=== PATIENT | female | born 1970 | race Caucasian/White ===

== ENCOUNTER → 2017-10-06 13:11 | Outpatient (CLI) | payer OTHER, SELFPAY ==
--- NOTE | 2017-10-10 08:10 | DI.NM.S_ITS ---
DATE OF SERVICE: 10/06/2017 PROCEDURE: Exercise perfusion study. INDICATIONS: Chest pain, shortness of breath, and palpitations. RADIOPHARMACEUTICAL: 25.4 mCi of technetium-99m Myoview IV was injected at stress, and 23.0 mCi of technetium-99m Myoview IV was injected at rest. CARDIAC STRESS: The patient underwent exercise perfusion study under the supervision of an attending staff. The patient walked on Nicholas protocol for 9 minutes 06 seconds and achieved 92% of target heart rate. Baseline blood pressure was 120/80. Peak blood pressure 190/90. The patient felt dyspnea. Baseline EKG revealed sinus rhythm with up to 0.5mm to [address] depression in inferior leads and some flattening in leads V5 to V6. During stress, those ST changes got more pronounced. There were no significant sustained arrhythmias. There was return to baseline in recovery. RAW DATA: There was significant breast shadow seen. GATED STUDY: Resting LV ejection fraction 75% and stress LV ejection fraction 82%. I don't see any obvious wall motion abnormalities. No transient ischemic dilatation. TID ratio is 0.63, which is within normal limits. Resting end- diastolic volume 103 mL. Lung/heart ratio is 0.36, which is within normal limits. MYOCARDIAL PERFUSION SCAN: Stress supine and resting supine images revealed small-sized mildly decreased perfusion of anterior wall which resolved during prone images, suggestive of breast tissue attenuation artifact. CONCLUSION: I would call this study a normal myocardial perfusion study with evidence of breast tissue attenuation artifact which resolved during prone images. The patient walked on Nicholas protocol for 9 minutes 0 seconds and achieved functional aerobic impairment of minus-5% and 10.1 METs of workload. LV function is preserved. Overall, this is a low risk myocardial perfusion scan. Humera Barr - BRITTNEY/iliana/higinio doc#: [id number]/job#: [id number] dd: 10/09/2017 12:51:00 dt: 10/09/2017 16:12:00 DICTATING MD/COPIES TO: Page Zhou MD COPIES MNE: DUSTIN
== END ==
PROVIDERS: PCP Physician Assistant Medical; Visit Provider Physician Assistant Medical
DX: R07.9 Chest pain, unspecified (principal); R06.02 Shortness of breath; R00.2 Palpitations
CPT/HCPCS: 78452; 93016; 93017; 93018; A9502

== ENCOUNTER → 2019-05-03 12:17 | Outpatient (CLI) | payer OTHER, SELFPAY ==
--- NOTE | 2019-05-03 | DI.MG.S_ITS ---
BILATERAL DIGITAL DIAGNOSTIC MAMMOGRAM 3D/2D: 05/03/2019 CLINICAL: Left breast mass. Comparison is made to exams dated: 03/26/2015 mammogram and 01/24/2011 mammogram - [facility]. The tissue of both breasts is heterogeneously dense. This may lower the sensitivity of mammography. There is a new 1.1 cm x 1.3 cm irregular equal density focal asymmetry in the left breast at 1 o'clock posterior depth. There also is a 1 cm x 1.1 cm irregular equal density focal asymmetry in the left breast at 1 o'clock anterior depth which appears more prominent and correlates as palpated, to the area of reported pain, with area of clinical concern, and triangle skin marker. No other significant masses, calcifications, or other findings are seen in either breast. IMPRESSION: INCOMPLETE: NEEDS ADDITIONAL IMAGING EVALUATION The new 1.1 cm x 1.3 cm irregular equal density focal asymmetry in the left breast at 1 o'clock posterior depth is indeterminate. An ultrasound is recommended. The 1 cm x 1.1 cm irregular equal density focal asymmetry in the left breast at 1 o'clock anterior depth is indeterminate. An ultrasound is recommended. There is no abnormality seen in the left breast to correspond with the area of clinical concern and palpable abnormality indicated by triangular marker in the axillary tail in the posterior depth in the upper outer quadrant, however, ultrasound is recommended. The recommended breast ultrasound is scheduled to immediately follow this examination. This exam was interpreted at Station ID: [id number]. NOTE: For mammograms, a report in lay terms will be sent to the patient. Approximately 15% of breast malignancies will not be visualized mammographically. In the management of a palpable breast mass, a negative mammogram must not discourage biopsy of a clinically suspicious lesion. Electronically Signed By: Dg Pierce M.D. aty/:05/03/2019 13:40:35 ACR BI-RADS Category 0: Incomplete [id number]
--- NOTE | 2019-05-03 | DI.US.S_ITS ---
ULTRASOUND OF LEFT BREAST AND AXILLA: 05/03/2019 CLINICAL: Palpable left breast lump. Comparison is made to exams dated: 05/03/2019 mammogram - [facility], 03/26/2015 mammogram, and 01/24/2011 mammogram - [facility]. Color flow and real-time ultrasound of the left breast axilla were performed. Ozuna scale images of the real-time examination were reviewed. There is a 1 cm x 1.1 cm x 1.3 cm irregular mass with an indistinct angular margins in the left breast at 1 o'clock posterior depth 8 cm from the nipple. This irregular mass is hypoechoic with no posterior acoustic shadowing or enhancement. This correlates with mammography findings. Color flow imaging demonstrates that there is vascularity present. There also is a benign 1.8 cm x 1.6 cm x 1 cm wider than tall oval cyst in the left breast at 1 o'clock anterior depth 5 cm from the nipple. This oval cyst is anechoic with a well-defined boundary and posterior acoustic enhancement. This correlates as palpated, with mammography findings, and area of clinical concern. Color flow imaging demonstrates that there is no vascularity present. No significant abnormalities were seen sonographically in the left axilla. IMPRESSION: HIGHLY SUGGESTIVE OF MALIGNANCY The 1 cm x 1.1 cm x 1.3 cm irregular mass in the left breast at 1 o'clock posterior depth is highly suggestive of malignancy. An ultrasound guided biopsy is recommended. The 1.8 cm x 1.6 cm x 1 cm wider than tall oval simple cyst in the left breast at 1 o'clock anterior depth is benign. Recommend clinical follow up for persistent symptoms. There is no abnormality seen in the left breast to correspond with the area of clinical concern and palpable abnormality indicated by triangular marker in the axillary tail in the posterior depth in the upper outer quadrant which likely represent normal fibroglandular tissue, however, clinical followup is recommendedfor persistent symptoms. Findings and biopsy recommendations were discussed with the patient by Dr. Martinez during today's visit. This exam was interpreted at Station ID: [id number]. Electronically Signed By: Dg Pierce M.D. aty/:05/03/2019 17:19:49 letter sent: Biopsy Required Ultrasound BI-RADS: 5 Highly suggestive of malignancy
== END ==
PROVIDERS: PCP Physician Assistant Medical; Referring Provider Physician Assistant Medical; Visit Provider Physician Assistant Medical
DX: R92.8 Other abnormal and inconclusive findings on diagnostic imaging of breast (principal); N63.21 Unspecified lump in the left breast, upper outer quadrant; N60.02 Solitary cyst of left breast
CPT/HCPCS: 76642; 77066; G0279

== ENCOUNTER → 2019-05-23 09:03 | Outpatient (CLI) | payer OTHER, SELFPAY ==
--- NOTE | 2019-05-23 | DI.US.S_ITS ---
ULTRASOUND GUIDED BIOPSY LEFT BREAST USING VACUUM DEVICE: 05/23/2019 CLINICAL: Left breast mass. PATIENT CONSENT: Risks (minor bleeding, infection, vasovagal reaction and repeat procedure), benefits and alternatives were explained to the patient and written informed consent was obtained. Correlation is made to exams dated: 05/23/2019 mammogram, 05/03/2019 ultrasound, 05/03/2019 mammogram - [facility], and 03/26/2015 mammogram - [facility]. An ultrasound guided biopsy using real-time ultrasound was performed for the irregular shaped mass located in the left breast at 1 o'clock posterior depth. The skin was prepped in the usual manner. Local anesthetic was administered to the access site. A small incision was made in the breast. The abnormality was approached from the lateral aspect. A biopsy needle was placed adjacent to the abnormality under ultrasound guidance. Once the needle was documented to be in the correct location, seven specimens were obtained using the Mammotome biopsy system. The patient received additional local anesthetic during the procedure. The specimens were sent to the laboratory for pathological analysis. IMPRESSION: ULTRASOUND GUIDED BIOPSY MALIGNANT Ultrasound guided biopsy of the mass in the left breast posterior depth was successful. Pathology demonstrates Invasive ductal carcinoma. Imaging findings are concordant. Recommend surgical/oncological management. This exam was interpreted at Station ID: [id number]. Robert wu,slc/:05/29/2019 17:27:38
--- NOTE | 2019-05-23 | DI.MG.S_ITS ---
PROCEDURE: MM DIAGNOSTIC MAMMO UNILAT LT2D COMPARISON: None. INDICATIONS: LEFT BREAST MASS FINDINGS: IMPRESSION: Dictated by: Robert Jackson M.D. on 05/27/2019 at 15:42 Approved by: Robert Jackson M.D. on 05/27/2019 at 15:43
--- NOTE | 2019-05-23 | PATH_ITS ---
[facility] Accession Number: [id number] . 01 Material submitted: . breast - LEFT BREAST MASS . 01 Diagnosis: A. Left Breast Mass, Biopsy: Invasive (ductal) carcinoma, grade 2 of 3 (Mcwilliams combined histologic grade, total score 7/9), with the following features: 1. Tubular differentation: Litte or none. (3/3) 2. Nuclear pleomorphism: High. (3/3) 3. Mitotic rate: Low. (1/3) 4. Size of invasive carcinoma: Present on multiple cores, single largest dimension of 8 mm. 5. Ductal carcinoma in situ: Not identified. 6. Calcifications: Present, in stroma associated with invasive carcinoma. 7. Lymphatic invasion: Not identified. 8. Prognostic markers: a. Estrogen receptor status: Positive (85% tumor cells staining, staining intensity: weak to moderate). b. Progesterone receptor status: Positive (90% tumor cells staining, staining intensity: moderate to strong). c. HER2 status: Negative for protein overexpression by immunohistochemistry (0-1+). [facility] 05/27/2019 1057 Local . 01 Electronically signed: Tonio Drummond MD, Pathologist NPI- [id number] . 01 Gross description: . Received one formalin-filled container, labeled with the patient's name and labeled left breast. The specimen is received with a plastic filter in container, sample loose in container and consists of multiple yellow-alvarez portions of soft tissue which range in size from 0.1 x 0.1 x 0.1 cm to 1.0 x 0.3 x 0.2 cm. The specimen filtered and entirely submitted in one cassette. Collection date: 05/23/19. Collection time per container: 10:15. Total fixation time: Approximately 12 hours. ([id number]) /NIVIA 05/24/2019 0226 Local . 01 Microscopic: . Predictive marker immunohistochemical studies are performed on block A1 with the invasive carcinoma showing the following results: . Estrogen receptor (SP1): Positive (85%, weak to moderate intensity). Progesterone receptor (1E2): Positive (90%, moderate to strong intensity). Her2 (4B5): Negative for protein overexpression by IHC (0 to 1+). . Internal controls for ER and AR are positive. Cold ischemic time is <5 minutes. The scoring criteria for breast biomarkers by immunohistochemistry is based on the ASCO/CAP guidelines (Emmanuel AC et al, J Clin Oncol: 2018 Sep 26;36(20):9483-8875 and Michelle ME et al, Arch Pathol Lab Med: 2009;134(6):907-22). Deparaffinized sections of formalin fixed tissue (along with appropriate positive controls) are incubated with the above antibody(s). Using the automated [place] stainer, tissue is incubated with the designated antibody which is then localized by a non-biotin, dual polymer detection system. The external controls are reviewed for appropriate reactivity and found to be adequate. Results on the target cell population are indicated above. These tests have not been validated on decalcified tissue. This test was developed and its performance characteristics determined by [employer]. It has not been cleared or approved by the U.S. Food and Drug Administration. The FDA has determined that such clearance or approval is not necessary. This test is used for clinical purposes. It should not be regarded as investigational or for research. . 01 Pathologist provided ICD-10: C50.912 . 01 CPT . 581034, 146177, 548800, 803699 Performed at: 01 [facility] [address] [address] [place] [address] [address], [place], [place] [id number] MD Eleuterio Lopes MD Phone: [phone]
--- NOTE | 2019-05-30 12:53 | ONC.MSW ---
Description: Initial Referral Navigation T/C Reason for Referral: Breast Cancer Activity: Pt called re: getting urgently scheduled for next initial provider appt slot. She was definitively diagnosed with invasive carcinoma of her left breast, with painful and enlarging lymph nodes in her left axilla. She had initially started her work-up at [facility], however has decided to choose [facility] to establish with an oncologist and obtain treatment. [employer] explained the ongoing availability of support, assistance and coordination through navigation, and explained that [facility] had called earlier in the morning re: her referral, and they are faxing over her records and prior-auth sometime this morning. Forwarded to scheduling for next urgent initial visit appt. time.
== END ==
PROVIDERS: PCP Physician Assistant Medical; Referring Provider Physician Assistant Medical; Visit Provider Physician Assistant Medical
DX: C50.412 Malignant neoplasm of upper-outer quadrant of left female breast (principal); Z17.0 Estrogen receptor positive status [ER+]
CPT/HCPCS: 19083; 77065

== ENCOUNTER → 2019-06-04 09:34 | Outpatient (CLI) | payer OTHER, SELFPAY ==
--- NOTE | 2019-06-04 09:35 | DI.US.S_ITS ---
PROCEDURE: US ABDOMEN COMPLETE INDICATIONS: PAIN TECHNIQUE: Real-time scanning was performed of the abdominal and retroperitoneal organs, with image documentation. COMPARISON: None. FINDINGS: Liver: Liver is normal in size and homogeneous in echotexture. Gallbladder: The gallbladder appears normal. Biliary ducts: Intrahepatic bile ducts are non-dilated. Extrahepatic bile duct caliber measures 4.0 mm. eter, or 10 mm or less post-cholecystectomy. Pancreas: Visualized portions of the pancreas are sonographically normal. Spleen: Spleen is normal in size and homogeneous in echotexture. Kidneys: Kidneys are normal in size and echotexture. Right kidney measures 10.8 cm long; left kidney measures 10.2 cm long. No hydronephrosis or nephrolithiasis. No solid masses. Aorta: Visualized aorta is normal in caliber at less than 3 cm. Iliacs: Proximal common iliac arteries are normal in caliber at less than 2.5 cm. IVC: Intrahepatic inferior vena cava is patent. Miscellaneous: No free abdominal fluid. IMPRESSION: Normal abdominal ultrasound, source of current pain is not identified. No evidence of metastatic disease. Dictated by: Terry Carreon M.D. on 06/04/2019 at 13:09 Approved by: Terry Carreon M.D. on 06/04/2019 at 13:10
[2019-06-04 10:42] LABS: Add Manual Diff / Slide Review NO; Basophils Absolute Auto 0 /uL (0-100); Basophils Percent Auto 0.7 % (0-2); Eosinophils Absolute Auto 200 /uL (0-450); Hematocrit 38.5 % (36-46); Lymphocytes Absolute Auto 1900 /uL (1100-4500); Lymphocytes Percent Auto 31.6 % (25-40); Mean Corpuscular HGB Conc 31.2 % (30-36); Mean Corpuscular Hemoglobin 20.8 PG (26-34); Mean Corpuscular Volume 66.5 fL (80-100); Monocytes Absolute Auto 300 /uL (0-900); Monocytes Percent Auto 4.8 % (3-14); Neutrophils Absolute Auto 3600 /uL (1500-7000); Neutrophils Percent Auto 59.9 % (50-75); Platelet Count 242 X10^3/uL (150-400); Red Blood Cell Count 5.79 X10^6/uL (4.0-5.2); Red Cell Distribution Width 15.5 % (11.6-14.8)
[2019-06-04 10:59] LABS: Anisocytosis 2+; Poikilocytosis 1+
[2019-06-04 11:16] LABS: Alanine Aminotransferase 14 IU/L (<35); Albumin 4.8 g/dL (3.5-5.0); Albumin Globulin Ratio 1.5 (1.0-2.8); Alkaline Phosphatase 78 U/L (38-126); Aspartate Aminotransferase 21 IU/L (14-36); BUN Creatinine Ratio 20.6 (6-22); Bilirubin Total 0.7 mg/dL (0.2-1.3); Blood Urea Nitrogen 14 mg/dL (7-17); Calcium 9.9 mg/dL (8.4-10.2); Carbon Dioxide 29 mmol/L (22-32); Chloride 104 mmol/L (98-107); Estimated Glomerular Filt Rate > 60.0 mL/min (>60); Globulin 3.2 g/dL (1.7-4.1); Glucose 103 mg/dL (70-100); HEMOLYSIS < 15 (0-50); Potassium 4.6 mmol/L (3.4-5.1); Sodium 140 mmol/L (137-145)
== END ==
PROVIDERS: PCP Physician Assistant Medical; Referring Provider Internal Medicine Hematology & Oncology; Visit Provider Internal Medicine Hematology & Oncology
DX: C50.412 Malignant neoplasm of upper-outer quadrant of left female breast (principal); R10.9 Unspecified abdominal pain
CPT/HCPCS: 36415; 76700; 80053; 85025

== ENCOUNTER → 2019-06-05 07:34 | Outpatient (CLI) | payer OTHER, SELFPAY ==
--- NOTE | 2019-06-05 | DI.MRI.S_ITS ---
BREAST MRI OF BOTH BREASTS: 06/05/2019 CLINICAL: Invasive ductal carcinoma left breast. INDICATIONS: INVASIVE DUCTAL CARCINOMA, LEFT BREAST TECHNIQUE: The patient was placed prone in a dedicated breast imaging coil. Precontrast axial STIR and 3D FLASH without fat saturation sequences were obtained. Both before and after bolus injection of contrast, sequential 1-minute axial 3D FLASH with fat saturation sequences for 3 time points, with subtraction images and maximum intensity projections (MIP's) generated. Delayed sagittal FLASH images with fat saturation were also obtained. Computer-aided detection, including computer algorithm analysis of MRI image data for lesion detection and characterization, pharmacokinetic analysis, with further physician review for interpretation, was performed. COMPARISON: Comparison is made to exams dated: 05/23/2019 ultrasound biopsy, 05/23/2019 mammogram, 05/03/2019 ultrasound, and 05/03/2019 mammogram - [facility]. FINDINGS: Image quality: Excellent. Right breast: There is moderate background parenchymal enhancement. No suspicious mass or unique non-masslike enhancement. Left breast: Mild background parenchymal enhancement. In the left breast 1:00 position at a posterior depth, there is enhancing mass measuring 1.7 x 1.3 x 1.3 cm. There is central susceptibility artifact consistent with a biopsy marker. Kinetics demonstrate rapid initial enhancement and greater than 50% washout. The lesion is about 1.6 cm away from the chest wall and about 1.5 cm deep to the lateral skin surface. In the 4:00 position of the left breast at mid depth, there is a 6 mm enhancing mass which demonstrates precontrast T1 and T2 hyperintensity, and kinetics show benign pattern of enhancement. A T1 hyperintense tubular, slightly serpiginous and dilated duct is seen centrally in the left breast without enhancement. A 1.0 cm oval cyst is present in the 12:00 left breast middle depth. A subcentimeter T2 hyperintense, nonenhancing structure is present at the 6:00 left breast middle depth. Miscellaneous: Multiple small lymph nodes are seen in the left axilla. Fatty myra are not definitely seen. There is a single mildly prominent right axillary lymph node. A small fatty hilum is seen. No bulky adenopathy in the axilla or internal mammary chains. The visible portions of the osseous structures, chest wall, heart, and upper abdomen appear normal. IMPRESSION: KNOWN BIOPSY PROVEN MALIGNANCY 1. Biopsy proven left breast carcinoma in the 1:00 position measuring 1.7 cm in greatest diameter. 2. A 6 mm lesion in the left breast middle depth 4:00 position demonstrates T2 hyperintensity and benign enhancement pattern. This may be proteinaceous cyst, less likely fibroadenoma. A second look ultrasound could be considered if this would change clinical management. 3. Clearly benign left breast findings as detailed above. 4. Small left axillary lymph nodes, but without definite fatty myra these are somewhat equivocal. 5. Indeterminate single prominent right axillary lymph node, nonspecific. Bilateral axillary ultrasounds at the time of second look ultrasound could be considered. BIRADS 6, biopsy-proven carcinoma. COMMENT: The imaging literature indicates that a negative contrast breast MRI examination has a high sensitivity and a moderate specificity for detecting and excluding invasive carcinomas to a detection threshold of 3-5 mm; nonetheless, appropriate clinical and mammographic follow-up are recommended. MRI is not sensitive for detecting DCIS (ductal carcinoma in situ) and may not detect large invasive neoplasms that show only minimal enhancement such as mucinous carcinoma. If there are suspicious calcifications or clinically worrisome palpable masses, then biopsy should still be considered. Invasive neoplasms can be hidden by co-existent and benign enhancement caused by mastitis, hormone therapy effects, radiation therapy, , and recent biopsy or surgery. False positive examinations can occur in a number of circumstances, including breasts that have recently been subject to invasive procedures and those that contain atypical ductal hyperplasia, hormonally stimulated glandular tissue, fat necrosis, or radial scars. This exam was interpreted at Station ID: [id number]. Electronically Signed By: Felisa hauser/:06/05/2019 15:33:23 copy to: Al Samuel copy to: VAHID FRANCO ACR BI-RADS Category 6: Known biopsy proven malignancy [id number]
== END ==
PROVIDERS: PCP Physician Assistant Medical; Referring Provider Physician Assistant Medical; Visit Provider Physician Assistant Medical
DX: C50.412 Malignant neoplasm of upper-outer quadrant of left female breast (principal); N63.23 Unspecified lump in the left breast, lower outer quadrant; R59.0 Localized enlarged lymph nodes
CPT/HCPCS: 77049; A9579

== ENCOUNTER → 2019-06-10 14:10 | Outpatient (CLI) | payer OTHER, SELFPAY ==
--- NOTE | 2019-06-10 | DI.US.S_ITS ---
ULTRASOUND OF RIGHT BREAST AND AXILLA: 06/10/2019 CLINICAL: Recent left breast ca diagnosis. Return today for right axilla check. Comparison is made to exams dated: 06/05/2019 breast MRI, 05/03/2019 mammogram - [facility], 03/26/2015 mammogram, and 01/24/2011 mammogram - [facility]. Color flow and real-time ultrasound of the right breast axilla were performed. Ozuna scale images of the real-time examination were reviewed. There is a 3.7 cm x 1.7 cm x 1.2 cm oval enlarged lymph node with a circumscribed margin in the deep right axilla. This oval enlarged lymph node is isoechoic with fatty hilum and no posterior acoustic shadowing or enhancement. Uniform cortex measures less than 3 mm. This correlates with breast MRI findings. IMPRESSION: PROBABLY BENIGN Right axillary enlarged lymph node demonstrates a fatty hilum and no cortical thickening and is probably benign. A follow-up ultrasound in 6 months is recommended to demonstrate stability. This exam was interpreted at Station ID: [id number]. Electronically Signed By: Otto Motley M.D. slc/:06/10/2019 17:21:29 copy to: Al Samuel copy to: VAHID FRANCO letter sent: Followup Recommended Ultrasound BI-RADS: 3 Probably benign
--- NOTE | 2019-06-10 | DI.US.S_ITS ---
LIMITED ULTRASOUND OF LEFT BREAST AND AXILLA: 06/10/2019 CLINICAL: [facility] left breast ca diagnosis. Follow-up today of cyst, new tender palp and axilla. Comparison is made to exams dated: 06/05/2019 breast MRI, 05/23/2019 ultrasound biopsy, 05/23/2019 mammogram, 05/03/2019 ultrasound, 05/03/2019 mammogram - [facility], and 03/26/2015 mammogram - [facility]. Color flow and real-time ultrasound of the left breast 12-1 o'clock, and axilla regions were performed. Ozuna scale images of the real-time examination were reviewed. Irregular hypoechoic mass in the left breast at 1 o'clock posterior depth 7-8 cm from the nipple. This correlates with mammography findings and the previous biopsy demonstrating invasive ductal carcinoma. Biopsy clip is seen. There is a 1.3 cm x 0.8 cm x 1 cm (previously 1.8 x 1.6 x 1 cm) oval cyst in the left breast at 1 o'clock anterior depth 5 cm from the nipple. This oval cyst is hypoechoic with a well-defined boundary and posterior acoustic enhancement. This correlates as palpated, with mammography, and breast MRI findings. Color flow imaging demonstrates that there is no vascularity present. This cyst is minimally smaller compared to prior US 05/03/2019 and appears more complex. No sonographic finding in the region of the tender palpable abnormality in the 12:00 region. There also is a stable-appearing 4 cm x 1.9 cm x 1.2 cm (previously measured 3.3 cm in length) oval enlarged lymph node with a circumscribed margin in the left axillary tail. This oval enlarged lymph node is isoechoic with fatty hilum and no posterior acoustic shadowing or enhancement. Uniform cortex measuring less than 3 mm. This correlates with breast MRI findings. IMPRESSION: INCOMPLETE: NEEDS ADDITIONAL IMAGING EVALUATION 1) Biopsy proven invasive ductal carcinoma in the left breast 1:00 7-8 cm from the nipple. -Recommend continued surgical/oncologic management. 2) A 1.3 cm oval cyst in the left breast at 1 o'clock 5 cm from the nipple is slightly decreased in size and appears more complex. This is most consistent with a complicated cyst and is probably benign. It is unclear if this will fall into the planned left breast lumpectomy site. -Recommend follow-up ultrasound in 6 months. 3) No sonographic abnormality at the tender palpable abnormality at 12:00 in the left breast. No abnormality seen in this region on recent MRI. -Recommend continued clinical surveillance. 4) Overall stable 4 cm x 1.2 cm oval enlarged lymph node in the left axilla without cortical thickening. This is probably benign. It is uncertain if this represents the sentinel lymph node which will presumably be resected with lumpectomy. -Recommend follow-up ultrasound in 6 months. 5) Left breast 4:00 middle depth region was not evaluated. This does not correlate with the area of focal pain reported by the patient. Suspicious abnormality seen on recent MRI. -Given the multicentric location the patient will be asked to come back for targeted ultrasound. Exam findings were discussed with the patient shortly after image acquisition. Patient was subsequently called at 6:21 PM to discuss need for evaluation at 4:00 of the left breast. This exam was interpreted at Station ID: [id number]. Electronically Signed By: Otto Motley M.D. [facility] [place]/:06/10/2019 18:22:39 copy to: Al Samuel copy to: VAHID FRANCO letter sent: Additional Imaging Needed Ultrasound BI-RADS: 0 Indeterminate
== END ==
PROVIDERS: PCP Physician Assistant Medical; Referring Provider Physician Assistant Medical; Visit Provider Physician Assistant Medical
DX: C50.412 Malignant neoplasm of upper-outer quadrant of left female breast (principal); R59.0 Localized enlarged lymph nodes; N60.02 Solitary cyst of left breast
CPT/HCPCS: 76642; 76882

== ENCOUNTER → 2019-06-12 14:03 | Outpatient (CLI) | payer OTHER, SELFPAY | PROVIDERS: PCP Physician Assistant Medical; Referring Provider Physician Assistant Medical; Visit Provider Physician Assistant Medical | DX: N63.20 Unspecified lump in the left breast, unspecified quadrant (principal); Z53.9 Procedure and treatment not carried out, unspecified reason ==

== ENCOUNTER → 2019-08-15 10:16 | Outpatient (CLI) | payer OTHER, SELFPAY ==
[2019-08-15 11:04] LABS: Add Manual Diff / Slide Review NO; Basophils Absolute Auto 0 /uL (0-100); Basophils Percent Auto 0.6 % (0-2); Eosinophils Absolute Auto 100 /uL (0-450); Eosinophils Percent Auto 1.6 % (2-4); Hematocrit 36.6 % (36-46); Lymphocytes Absolute Auto 1800 /uL (1100-4500); Lymphocytes Percent Auto 28.7 % (25-40); Mean Corpuscular HGB Conc 32.8 % (30-36); Mean Corpuscular Hemoglobin 21.3 PG (26-34); Monocytes Absolute Auto 300 /uL (0-900); Monocytes Percent Auto 4.5 % (3-14); Neutrophils Absolute Auto 4000 /uL (1500-7000); Neutrophils Percent Auto 64.6 % (50-75); Platelet Count 206 X10^3/uL (150-400); Red Blood Cell Count 5.63 X10^6/uL (4.0-5.2); Red Cell Distribution Width 15.3 % (11.6-14.8); White Blood Cell Count 6.2 X10^3/uL (4.5-11.0)
[2019-08-15 11:16] LABS: Alanine Aminotransferase 24 IU/L (<35); Albumin 4.8 g/dL (3.5-5.0); Albumin Globulin Ratio 1.4 (1.0-2.8); Alkaline Phosphatase 64 U/L (38-126); Aspartate Aminotransferase 25 IU/L (14-36); Blood Urea Nitrogen 15 mg/dL (7-17); Calcium 9.9 mg/dL (8.4-10.2); Carbon Dioxide 25 mmol/L (22-32); Chloride 105 mmol/L (98-107); Estimated Glomerular Filt Rate > 60.0 mL/min (>60); Globulin 3.4 g/dL (1.7-4.1); Glucose 115 mg/dL (70-100); HEMOLYSIS < 15 (0-50); Potassium 4.3 mmol/L (3.4-5.1); Sodium 139 mmol/L (137-145); Total Protein 8.2 g/dL (6.3-8.2)
[2019-08-15 13:37] LABS: Anisocytosis 1+; Microcytosis 1+
== END ==
PROVIDERS: PCP Physician Assistant Medical; Referring Provider Internal Medicine Hematology & Oncology; Visit Provider Internal Medicine Hematology & Oncology
DX: C50.412 Malignant neoplasm of upper-outer quadrant of left female breast (principal)
CPT/HCPCS: 36415; 80053; 85025

== ENCOUNTER → 2019-11-14 08:20 | Oncology outpatient (ONC) | payer OTHER, SELFPAY ==
[2019-06-03 14:09] VITALS: BP 145/87; PULSE 72; RESP 18; TEMP 36.9; O2SAT 98
--- NOTE | 2019-06-03 14:20 | P.CONONC_ITS ---
History of Present Illness - Data of Consult Patient: new to practice Consult date: 06/03/19 Requesting Physician: Corrine Church PA-C Primary Care Provider: Corrine Church PA-C - Consult Narrative Reason for consult: Left breast ER+, GA+, HER2- invasive ductal carcinoma Narrative: Humera Barr is a 49 year old female. Probably around in March of 2019, patient noticed left breast tenderness especially over the upper outer quadrant. Patient said that she actually palpated a lump at that time and the lump was tender. In addition she noticed a little swelling at the tail of the left breast. On 05/03/2019, patient underwent bilateral digital diagnostic mammogram. The mammogram showed new 1.1 cm x 1.3 cm irregular equal density focal asymmetry in the left breast at 0100 posterior depth as well as a 1 cm x 1.1 cm irregular equal density focal asymmetry in the left breast at 0100 anterior depth. Same day ultrasound confirmed the 1 x 1.1 x 1.3 cm irregular mass in the left breast at 0100 posterior depth highly suspicious for malignancy and a 1.8 x 1.6 x 1 cm wider than tall oval simple cyst in the left breast at 0100 anterior depth which presumed to be benign. No significant abnormalities were seen sonographically in the left axilla. On 05/23/2019, patient underwent ultrasound- guided biopsy successfully. The biopsy showed invasive ductal carcinoma, grade 2/3, without DCIS, with calcifications, without lymphovascular invasion, and was ER positive (85%, weak to moderate), GA positive (90% tumor cells, moderate to strong signal), HER2 negative by IHC (0 to 1+). There after patient was referred to Medical Oncology for further evaluation. Patient has not been informed of been referred to any surgical oncology at this moment. Patient is complaining of mild headache on the left side. Patient denies shortness of breath or chest pain. She denies any loss of appetite. Patient denies any non-intentional weight loss. Patient has chronic right salivary gland swelling which is being followed by Dr. Shun Hernadez. She denies any lumps and bumps in the axilla or the groins. No abdominal pain no diarrhea and no constipation. CC: Mitch Woo MD Patient reports pain?: Yes Home Medications and Allergies Home Medications Medication Instructions Recorded Confirmed Type ibuprofen 400 mg PO Q6H 06/03/19 06/03/19 History Allergies Allergy/AdvReac Type Severity Reaction Status Date / Time No Known Drug Allergies Allergy Unverified 02/21/19 13:04 Medical History - Medical, Surgical, Family History Medical History: Medical History (Last Updated 06/03/19 @ 14:41 by Mitch Woo MD) Thalassemia, beta Surgical History: Surgical History (Last Updated 06/03/19 @ 14:42 by Mitch Woo MD) History of oophorectomy, unilateral Hx of appendectomy Hx of hysterectomy Family History: Family History (Last Updated 06/03/19 @ 14:40 by Mitch Woo MD) Father Thalassemia, beta Brother Thalassemia, beta - Social History Smoking Status: Never smoker Substance Use Type: does not use Alcohol Intake: never Review of Systems - Patient Self-Reported Symptoms SR Constitution: Night Sweats SR ears, nose, mouth, throat issues: Congestion, Swollen glands SR respiratory issues: Shortness of breath, Mucous SR Hematologic issues: Swollen lymph nodes All systems PM: reviewed and no additional remarkable complaints except as stated Exam Vital signs: Last Vital Signs Temp 98.5 F 06/03/19 14:09 Pulse 72 06/03/19 14:09 Resp 18 06/03/19 14:09 BP 145/87 H 06/03/19 14:09 Pulse Ox 98 06/03/19 14:09 Narrative: ECOG 1 Gen: WDWN, NAD, pleasant and cooperative. HEENT: NCAT, EOMI, PERRLA, anicteric sclera. Neck: Supple, No palpable thyromegaly or lymphadenopathy. Respiratory: CTAB, no wheezes audible. No JVD Cardiovascular: RRR, S1 and S2 normal, no M/G/R. Abdomen: Soft, no palpable organomegaly. Significant right abdominal tenderness noted. Extremities: No LE pitting edema. Lymphatic: no palpable lymph nodes in the neck, axillae, or groins. Neurological: AOx3, CN II-XII grossly intact. No focal motor or sensory deficit. Psychiatric: Normal affect, appropriate mood, no depression, no anxiety. Breast exams: Left breast is without nipple retraction, needle biopsy location was noted in the tail of the left breast. There is a probably 1 cm irregular nodule palpable at about 0100 and 6 cm from the nipple. There is another spot at about 0900 with tenderness about 4 cm from the nipple. No skin changes. No palpable nodes in the left axilla; The right breast is without nipple retraction, no skin changes, no palpable lumps, no palpable lymph nodes in the left axilla. All physical examinations were chaperoned Results - Labs Pending Assessment and Plan (1) Primary cancer of upper outer quadrant of left breast Overview: 49-year-old female with self palpated breast upper outer quadrant mass with tenderness. She was found to have ER positive GA positive HER2 negative clinically node negative invasive ductal carcinoma intermediate grade after ultrasound-guided biopsy on 05/23/2019. Assessment: Today I explained to the patient that she has an invasive ductal carcinoma of her left breast. Her breast cancer is characterized by being ER positive, GA positive, and HER2 negative, and clinically node negative. Based on the available information, she has an early stage breast cancer likely stage I. Given the early stage and the small size, I would recommend upfront surgery first. After the surgery depending on what type of surgery and the pathology report, I will discuss with them about the need for chemotherapy and the need for radiation therapy. She may need Oncotype DX study to evaluate the benefit of adjuvant chemotherapy. I talked with her that if the score of Oncotype DX is 26 or higher, usually we would recommend chemotherapy. If it is 10 or lower, no chemotherapy is recommended. If intermediate score between 10 and 25, we usually do not recommend chemotherapy except under certain circumstances. I will refer the patient to Dr. Mauro. who saw the patient in the past for hemmarroids for evaluation of the surgery. Patient has already scheduled MRI of the breast which I completely agree with. In addition on today's physical examination, I noticed right abdominal pain. I will order a ultrasound study to further evaluate. Today I also talked with her and her that after the chemotherapy and/or radiation therapy is complete, patient will need 5 years of endocrine therapy. Plan: 1. MR lucero as scheduled 2. US abdomen, complete 3. CBC, CMP 4. Surgical referal 5. RTC in 3 weeks.
--- NOTE | 2019-06-04 13:12 | ONC.SCHED ---
Patient is scheduled for 06/[address] Samuel. Patient will notify of surgery date after which we will re-evaluate fup date with Dr. Woo.
--- NOTE | 2019-06-24 10:19 | ONC.SCHED ---
Left a msg for patient to call back to re schedule per Zoe RAIN she needs to come in.
[2019-06-27 13:03] VITALS: BP 134/75; PULSE 73; RESP 18; TEMP 36.8; O2SAT 99
--- NOTE | 2019-06-27 13:45 | P.PNONC_ITS ---
PN -Subjective Interval history: ID/CC: 49 year old female with newly diagnosed left breast ER positive, MD positive, HER2 negative cancer HPI: Humera Barr is a 49 year old female. Probably around in March of 2019, patient noticed left breast tenderness especially over the upper outer quadrant. Patient said that she actually palpated a lump at that time and the lump was tender. In addition she noticed a little swelling at the tail of the left breast. On 05/03/2019, patient underwent bilateral digital diagnostic mammogram. The mammogram showed new 1.1 cm x 1.3 cm irregular equal density focal asymmetry in the left breast at 0100 posterior depth as well as a 1 cm x 1.1 cm irregular equal density focal asymmetry in the left breast at 0100 anterior depth. Same day ultrasound confirmed the 1 x 1.1 x 1.3 cm irregular mass in the left breast at 0100 posterior depth highly suspicious for malignancy and a 1.8 x 1.6 x 1 cm wider than tall oval simple cyst in the left breast at 0100 anterior depth which presumed to be benign. No significant abnormalities were seen sonographically in the left axilla. On 05/23/2019, patient underwent ultrasound- guided biopsy successfully. The biopsy showed invasive ductal carcinoma, grade 2/3, without DCIS, with calcifications, without lymphovascular invasion, and was ER positive (85%, weak to moderate), MD positive (90% tumor cells, moderate to strong signal), HER2 negative by IHC (0 to 1+). There after patient was referred to Medical Oncology for further evaluation. Patient has not been informed of been referred to any surgical oncology at this moment. Patient is complaining of mild headache on the left side. Patient denies shortness of breath or chest pain. She denies any loss of appetite. Patient denies any non-intentional weight loss. Patient has chronic right salivary gland swelling which is being followed by Dr. Shun Hernadez. She denies any lumps and bumps in the axilla or the groins. No abdominal pain no diarrhea and no constipation. Interval History: Since her previous visit here, patient underwent MRI of the breast as well as multiple ultrasound study of both breasts and axillas. Patient presents here today to review the results. In addition patient was also evaluated by Dr. Samuel. But due to current COVID-19 pandemic, and based on [facility]SO guidelines, Dr. Samuel recommended that we delay the surgical resection for now. - Patient Self-Reported Symptoms SR Constitution: Weight loss/gain SR ears, nose, mouth, throat issues: Congestion, Swollen glands SR respiratory issues: Shortness of breath, Mucous SR Cardiovascular issues: Dizzy/lightheaded SR Musculoskeletal issues: Joint pain or swelling SR Neuro issues: Headache, Lightheaded/dizzy SR Hematologic issues: Swollen lymph nodes - Additional ROS All systems PM: reviewed and no additional remarkable complaints except as stated Home Medications and Allergies Home Medications Medication Instructions Recorded Confirmed Type ibuprofen 400 mg PO Q6H 06/03/19 06/27/19 History acetaminophen [Tylenol] 325 mg PRN 06/27/19 History tamoxifen 20 mg PO DAILY #90 tab 06/27/19 Rx tamoxifen 20 mg PO DAILY #90 tab 06/27/19 Rx Allergies Allergy/AdvReac Type Severity Reaction Status Date / Time No Known Drug Allergies Allergy Unverified 06/06/19 09:37 Exam Vital signs: Vital Signs Temp Pulse Resp BP Pulse Ox 06/27/19 13:03 98.3 F 73 18 134/75 99 Intake and Output 06/26/19 06/27/19 06/27/19 23:59 07:59 15:59 Other: Weight 82.9 kg Patient Weight 06/27/19 23:59 Weight 82.9 kg Narrative: ECOG 1 Gen: WDWN, NAD, pleasant and cooperative. HEENT: NCAT, EOMI, PERRLA, anicteric sclera. Neck: Supple, No palpable thyromegaly or lymphadenopathy. Respiratory: CTAB, no wheezes audible. No JVD Cardiovascular: RRR, S1 and S2 normal, no M/G/R. Abdomen: Soft, no palpable organomegaly. Significant right abdominal tend erness noted. Extremities: No LE pitting edema. Lymphatic: no palpable lymph nodes in the neck, axillae, or groins. Neurological: AOx3, CN II-XII grossly intact. No focal motor or sensory deficit. Psychiatric: Normal affect, appropriate mood, no depression, no anxiety. Breast exams: deferred. Assessment and Plan (1) Primary cancer of upper outer quadrant of left breast Overview: 49-year-old female with self palpated breast upper outer quadrant mass with tenderness. She was found to have ER positive MD positive HER2 negative clinically node negative invasive ductal carcinoma intermediate grade after ultrasound-guided biopsy on 05/23/2019. Assessment: Today, I reviewed the MRI results with the patient. On the MRI, there is 01:00 lesion that was biopsy confirmed breast cancer, a small lesion in the 4 o'clock position as well as a benign cysts. In addition small left axillary lymph nodes noted which were considered equivocal and a single prominent right axillary lymph node noted. I talked with the patient and her that because of this, she underwent another ultrasound study on 06/10/2019. It again showed the proven 01:00 lesion. But it did not show any lesion at the 04:00 position. There is an enlarged lymph node in the left axilla which is probably benign according to the report. The right axillary lymph node is also deemed probably benign. I explained to the patient that because of all of these findings, a follow-up 6 month ultrasound study was deemed necessary. The ultrasound of the abdomen showed no evidence of metastasis. According to patient, Dr. Samuel recommended delay the surgery given the concurrent COVID-19 pandemic based on SSO guidelines. I explained to the patient that for hormone receptor-positive breast cancer, pre-operative endocrine therapy is an option and it can help reduce the size of the tumor as well as possibly reduce the size of the lymph nodes in the axilla. The treatment will make the surgery easier and probably less traumatic. However it will take sometime between 4-6 months to see significant effect. She is now still probably pre menopause. However it is difficult to confirm because she had hysterectomy and one-sided oophorectomy. I talked with her that I would recommend we start tamoxifen. I explained to the patient that tamoxifen has been shown to reduce the risk of recurrence. It is effective in majority of the patients with hormone receptor positive breast cancer. The complications and side effects of tamoxifen include but not limited to hot flashes, night sweats (postmenopausal symptoms), increased risk of venous thromboembolism and increased risk of uterine cancer. Patient obviously has a negligible uterine cancer risk given that she has had hysterectomy. As far as the thromboembolism is concerned, I usually recommend patient take aspirin 81 mg once a day. Patient voiced understanding. Plan: 1. Tamoxifen 20 mg daily 2. ASA 81 mg daily 3. RTC in 2 months, CBC, CMP
--- NOTE | 2019-08-20 13:57 | P.PNONC_ITS ---
PN -Subjective Interval history: ID/CC: 49 year old female with left breast ER positive, MI positive, HER2 negative cancer HPI: Humera Barr is a 49 year old female. I first saw the patient on 06/27/2019. Probably around in 03/2019, patient noticed left breast tenderness especially over the upper outer quadrant. Patient said that she actually palpated a lump at that time and the lump was tender. In addition she noticed a little swelling at the tail of the left breast. On 05/03/2019, patient underwent bilateral digital diagnostic mammogram. The mammogram showed new 1.1 cm x 1.3 cm irregular equal density focal asymmetry in the left breast at 0100 posterior depth as well as a 1 cm x 1.1 cm irregular equal density focal asymmetry in the left breast at 0100 anterior depth. Same day ultrasound confirmed the 1 x 1.1 x 1.3 cm irregular mass in the left breast at 0100 posterior depth highly suspicious for malignancy and a 1.8 x 1.6 x 1 cm wider than tall oval simple cyst in the left breast at 0100 anterior depth which presumed to be benign. No significant abnormalities were seen sonographically in the left axilla. On 05/23/2019, patient underwent ultrasound-guided biopsy successfully. The biopsy showed invasive ductal carcinoma, grade 2/3, without DCIS, with calcifications, without lymphovascular invasion, and was ER positive (85%, weak to moderate), MI positive (90% tumor cells, moderate to strong signal), HER2 negative by IHC (0 to 1+). On 06/05/2019, patient underwent MR breast. It showed the biopsy-proven left br east carcinoma in the 0100 position measuring 1.7 cm in greatest diameter, a 6 mm lesion in the left breast middle depth 0400 position, small left axillary lymph nodes somewhat equivocal, indeterminate single prominent right axillary lymph node. On 06/10/2019 patient underwent ultrasound. The left breast 0400 middle depth lesion on MRI showed no abnormality sonographically. It showed the biopsy-proven invasive ductal carcinoma in the left breast 0100 hours 7-8 cm from the nipple. Right axillary enlarged lymph node showed fatty hilum and no cortical thickening probably benign. Interval History: Patient was referred to our clinic and I saw the patient on 06/27/2019. Because of COVID-19 pandemic, the planned surgery was deferred. Therefore we started the patient on pre operative endocrine therapy with tamoxifen 20 mg once a day. She has tolerated well except mild hot flashes. Recently, patient was evaluated [facility] Who apparently contacted Dr. Starr whom patient was initially referred to but was not able to schedule the visit. Humera talked with Dr. Starr and surgical resection has already been scheduled for 08/26/2019. - Patient Self-Reported Symptoms SR Constitution: Weight loss/gain SR ears, nose, mouth, throat issues: Congestion, Swollen glands SR respiratory issues: Shortness of breath, Mucous SR Cardiovascular issues: Dizzy/lightheaded SR Musculoskeletal issues: Joint pain or swelling SR Neuro issues: Headache, Lightheaded/dizzy SR Hematologic issues: Swollen lymph nodes - Additional ROS All systems PM: reviewed and no additional remarkable complaints except as stated Home Medications and Allergies Home Medications Medication Instructions Recorded Confirmed Type ibuprofen 400 mg PO Q6H 06/03/19 06/27/19 History acetaminophen [Tylenol] 325 mg PRN 06/27/19 History tamoxifen 20 mg PO DAILY #90 tab 06/27/19 Rx tamoxifen 20 mg PO DAILY #90 tab 06/27/19 Rx aspirin DAILY 08/20/19 History Allergies Allergy/AdvReac Type Severity Reaction Status Date / Time No Known Drug Allergies Allergy Unverified 06/06/19 09:37 Exam Vital signs: 08/20/19 18:03 Last Vital Signs Temp 99.0 F 08/20/19 14:03 Pulse 73 08/20/19 14:03 Resp 16 08/20/19 14:03 BP 147/82 H 08/20/19 14:03 Pulse Ox 100 08/20/19 14:03 Narrative: ECOG 1 Gen: WDWN, NAD, pleasant and cooperative. Accompanied by her HEENT: NCAT, EOMI, PERRLA, anicteric sclera. Respiratory: No use of accessory respiratory muscle Neurological: AOx3, CN II-XII grossly intact. No focal motor or sensory deficit. Psychiatric: Normal affect, appropriate mood, no depression, no anxiety. Breast exams: deferred. Results - Labs Pending Assessment and Plan (1) Primary cancer of upper outer quadrant of left breast Overview: 49-year-old female with self palpated breast upper outer quadrant mass with tenderness. She was found to have ER positive MI positive HER2 negative clinically node negative invasive ductal carcinoma intermediate grade after ultrasound-guided biopsy on 05/23/2019. Assessment: Due to COVID-19 crisis, her surgery was deferred without expected date. Therefore we started the patient on pre operative endocrine therapy with tamoxifen 20 mg once a day. Patient tolerated well with only mild hot flashes. Recently she was evaluated by her primary care provider Jayda Church. Patient was then evaluated by Dr. Starr all scheduled the surgical section on 08/26/2019. I explained to the patient that it is reasonable to go ahead with the surgery. After the surgery, I will review the pathology. If the node is positive, I would recommend adjuvant chemotherapy. If the node is negative, I would recommend Oncotype DX score to evaluate the recurrence risk and the benefit of adjuvant chemotherapy. If the score is less than 26, usually I would not recommend chemotherapy. Patient voiced understanding. Plan: 1. Stop Tamoxifen 20 mg daily and ASA 81 mg daily 3. Surgery as planned by Dr. Starr 4. RTC in 3-4 weeks for follow up visit
[2019-08-20 14:03] VITALS: BP 147/82; PULSE 73; RESP 16; TEMP 37.2; O2SAT 100
--- NOTE | 2019-08-20 14:44 | ONC.SCHED ---
Per Dr. Woo I called patient to have her stop Aspirin and Tamoxifin as she is having surgery next week. I left message on her VM.
[2019-09-19 16:17] VITALS: BP 124/72; PULSE 66; RESP 18; TEMP 37.3; O2SAT 98
--- NOTE | 2019-09-19 16:33 | ONC.PN ---
PN -Subjective Interval history: ID/CC: 49 year old female with left breast ER positive, GA positive, HER2 negative cancer HPI: Humera Barr is a 49 year old female. I first saw the patient on 06/27/2019. Probably around in 03/2019, patient noticed left breast tenderness especially over the upper outer quadrant. Patient said that she actually palpated a lump at that time and the lump was tender. In addition she noticed a little swelling at the tail of the left breast. On 05/03/2019, patient underwent bilateral digital diagnostic mammogram. The mammogram showed new 1.1 cm x 1.3 cm irregular equal density focal asymmetry in the left breast at 0100 posterior depth as well as a 1 cm x 1.1 cm irregular equal density focal asymmetry in the left breast at 0100 anterior depth. Same day ultrasound confirmed the 1 x 1.1 x 1.3 cm irregular mass in the left breast at 0100 posterior depth highly suspicious for malignancy and a 1.8 x 1.6 x 1 cm wider than tall oval simple cyst in the left breast at 0100 anterior depth which presumed to be benign. No significant abnormalities were seen sonographically in the left axilla. On 05/23/2019, patient underwent ultrasound-guided biopsy successfully. The biopsy showed invasive ductal carcinoma, grade 2/3, without DCIS, with calcifications, without lymphovascular invasion, and was ER positive (85%, weak to moderate), GA positive (90% tumor cells, moderate to strong signal), HER2 negative by IHC (0 to 1+). On 06/05/2019, patient underwent MR breast. It showed the biopsy-proven left breast carcinoma in the 0100 position measuring 1.7 cm in greatest diameter, a 6 mm lesion in the left breast middle depth 0400 position, small left axillary lymph nodes somewhat equivocal, indeterminate single prominent right axillary lymph node. On 06/10/2019 patient underwent ultrasound. The left breast 0400 middle depth lesion on MRI showed no abnormality sonographically. It showed the biopsy-proven invasive ductal carcinoma in the left breast 0100 hours 7-8 cm from the nipple. Right axillary enlarged lymph node showed fatty hilum and no cortical thickening probably benign. Patient was referred to our clinic and I saw the patient on 06/27/2019. Because of COVID-19 pandemic, the planned surgery was deferred. Therefore we started the patient on pre operative endocrine therapy with tamoxifen 20 mg once a day. She has tolerated well except mild hot flashes. In late , Humera was evaluated by her primary care provider MELANY Church at [facility], who contacted Dr. Starr whom patient was initially referred to but was not able to schedule the visit. Humera then talked with Dr. Starr and decided to proceed with surgery. Therefore, on 08/20/2019, she stopped the neoadjuvant tamoxifen. Interval History: On 08/26/2019 patient left breast lumpectomy sentinel node biopsy after needle localization mapping by Dr. Starr. The surgical pathology showed invasive infiltrating ductal carcinoma, low-grade, low mitotic rate, measuring 15 x 13 x 12 mm in size, without DCIS, unifocal, no lymphovascular invasion, all margins negative, and a single axillary sentinel node negative for metastasis. AJCC (eighth edition) pT1c pN0. She presents here today accompanied by her for postoperative follow-up visit. Patient is reporting some tenderness and swelling of the left breast. Otherwise she reports good energy good appetite. She does not have any shortness of breath or chest pain. No abdominal pain no diarrhea and no constipation. She apparently has been informed of the pathology report, and also has been informed about the necessity of adjuvant radiation therapy. Dr. Starr has already placed an referral to [facility]. - Patient Self-Reported Symptoms SR Constitution: Night Sweats SR ears, nose, mouth, throat issues: Cough SR respiratory issues: Cough SR Cardiovascular issues: Dizzy/lightheaded SR Genitourinary issues: Frequent urination, Discharge SR Musculoskeletal issues: Joint pain or swelling SR Neuro issues: Headache, Lightheaded/dizzy SR Hematologic issues: Swollen lymph nodes - Additional ROS All systems PM: reviewed and no additional remarkable complaints except as stated Home Medications and Allergies Home Medications Medication Instructions Recorded Confirmed Type ibuprofen 400 mg PO Q6H 06/03/19 06/27/19 History acetaminophen [Tylenol] 325 mg PRN 06/27/19 History tamoxifen 20 mg PO DAILY #90 tab 06/27/19 Rx tamoxifen 20 mg PO DAILY #90 tab 06/27/19 Rx aspirin DAILY 08/20/19 History Allergies Allergy/AdvReac Type Severity Reaction Status Date / Time No Known Drug Allergies Allergy Unverified 06/06/19 09:37 Exam Vital signs: Last Vital Signs Temp 99.1 F 07/02/20 16:17 Pulse 66 09/19/19 16:17 Resp 18 09/19/19 16:17 BP 124/72 09/19/19 16:17 Pulse Ox 98 09/19/19 16:17 Narrative: ECOG 1 Gen: WDWN, NAD, pleasant and cooperative. Accompanied by her HEENT: NCAT, EOMI, PERRLA, anicteric sclera. Respiratory: No use of accessory respiratory muscle Neurological: AOx3, CN II-XII grossly intact. No focal motor or sensory deficit. Psychiatric: Normal affect, appropriate mood, no depression, no anxiety. Breast exams: deferred. Results - Labs None for review today. Assessment and Plan (1) Primary cancer of upper outer quadrant of left breast Overview: Humera is a 49-year-old female with self palpated breast upper outer quadrant tender mass, and was found out to have ER positive, GA positive, HER2 negative, clinically node negative invasive ductal carcinoma intermediate grade after ultrasound-guided biopsy on 05/23/2019. Due to COVID-19 crisis, her surgery was deferred. From 06/27/2019 to 08/20/2019, she received a brief course of neoadjuvant endocrine therapy with tamoxifen. On 08/26/2019, she underwent left breast lumpectomy with sentinel node biopsy after needle localization mapping by Dr. Starr. The surgical pathology infiltrating ductal carcinoma, low-grade, low mitotic rate, unifocal, 15 x 13 x 12 mm in size, without DCIS, without LVI, with all margins negative, and one negative axillary sentinel node (0/1). AJCC (eighth edition) pT1c pN0. Assessment: Today, first of all I tried to explain to patient about the pathology findings. Dr. Starr has already explained to the patient about the final pathology diagnosis. I emphasized to the patient and her that she has an early stage left breast cancer characterized by positive estrogen receptor, positive progesterone receptor, negative HER2 amplification and negative sentinel lymph node. Given that she has only had lumpectomy and the size of the primary tumor (pT1c), I agree that adjuvant radiation therapy is highly recommended. However the question is about the chemotherapy. Patient surgical sample showed no high risk features, most likely she probably does not need adjuvant chemotherapy. But based on the guidelines, I would recommend sent off the surgical sample for evaluation of Oncotype DX score. I explained to the patient that if the score is 26 or higher, chemotherapy is highly recommended. However if the score is less than 26, I will further discuss about the chemotherapy. Most of the time, adjuvant chemotherapy is not required. Especially if the recurrence score is low. I talked with the patient that it will take about 1-2 weeks to receive the results. I also talked with the patient that if chemotherapy is indeed indicated, patient will need to have a port placed. Lastly, after the chemotherapy if it is indicated, patient then will go on and receive the radiation therapy. After the radiation therapy she will need 5 years of endocrine therapy to reduce the risk of distant recurrence. Patient and patient's both voiced understanding. Humera said that she is going to call Dr. Garvin office to see if the sample has already been sent off for Oncotype DX score. If it has not been sent off, we will request the Oncotype DX score study. Plan: 1. Surgery sample for OncoType Dx study (if it has not been done). 2. RTC in 2 weeks for follow up visit
--- NOTE | 2019-09-23 11:40 | ONC.SCHED ---
Called patient to get her scheduled for f/u. Asks if she had her from Dr. Starr regarding Onco Type and she called and left a message this morning. Dr. Starr is not in. Patient will call me back when she hears from Dr. Starr's office regarding the Onco Type test. Patient is confused as to why this test needs to be done after her conversations with Dr. Starr. I will speak with Dr. Woo.
--- NOTE | 2019-09-23 14:20 | ONC.SCHED ---
OncoType DX requisition faxed to [employer]
--- NOTE | 2019-09-27 15:40 | ONC.SCHED ---
OncoType DX: faxed [employer] insurance authorization to [facility] billing team @ [phone] reference #[id number]. ETA of report 10/09/19 or before.
--- NOTE | 2019-10-07 13:15 | P.PNONC_ITS ---
PN -Subjective Interval history: ID/CC: 49 year old female with left breast ER positive, NE positive, HER2 negative cancer HPI: Humera Barr is a 49 year old female. I first saw the patient on 06/27/2019. Probably around in 03/2019, patient noticed left breast tenderness especially over the upper outer quadrant. Patient said that she actually palpated a lump at that time and the lump was tender. In addition she noticed a little swelling at the tail of the left breast. On 05/03/2019, patient underwent bilateral digital diagnostic mammogram. The mammogram showed new 1.1 cm x 1.3 cm irregular equal density focal asymmetry in the left breast at 0100 posterior depth as well as a 1 cm x 1.1 cm irregular equal density focal asymmetry in the left breast at 0100 anterior depth. Same day ultrasound confirmed the 1 x 1.1 x 1.3 cm irregular mass in the left breast at 0100 posterior depth highly suspicious for malignancy and a 1.8 x 1.6 x 1 cm wider than tall oval simple cyst in the left breast at 0100 anterior depth which presumed to be benign. No significant abnormalities were seen sonographically in the left axilla. On 05/23/2019, patient underwent ultrasound-guided biopsy successfully. The biopsy showed invasive ductal carcinoma, grade 2/3, without DCIS, with calcifications, without lymphovascular invasion, and was ER positive (85%, weak to moderate), NE positive (90% tumor cells, moderate to strong signal), HER2 negative by IHC (0 to 1+). On 06/05/2019, patient underwent MR breast. It showed the biopsy-proven left br east carcinoma in the 0100 position measuring 1.7 cm in greatest diameter, a 6 mm lesion in the left breast middle depth 0400 position, small left axillary lymph nodes somewhat equivocal, indeterminate single prominent right axillary lymph node. On 06/10/2019 patient underwent ultrasound. The left breast 0400 middle depth lesion on MRI showed no abnormality sonographically. It showed the biopsy-proven invasive ductal carcinoma in the left breast 0100 hours 7-8 cm from the nipple. Right axillary enlarged lymph node showed fatty hilum and no cortical thickening probably benign. Patient was referred to our clinic and I saw the patient on 06/27/2019. Because of COVID-19 pandemic, the planned surgery was deferred. Therefore we started the patient on pre operative endocrine therapy with tamoxifen 20 mg once a day. She has tolerated well except mild hot flashes. In late , Humera was evaluated by her primary care provider MELANY Church at [facility], who contacted Dr. Starr whom patient was initially referred to but was not able to schedule the visit. Humera then talked with Dr. Starr and decided to proceed with surgery. Therefore, on 08/20/2019, she stopped the neoadjuvant tamoxifen. On 08/26/2019 patient left breast lumpectomy and sentinel node biopsy after needle localization mapping by Dr. Starr. The surgical pathology showed invasive infiltrating ductal carcinoma, low-grade, low mitotic rate, measuring 15 x 13 x 12 mm in size, without DCIS, unifocal, no lymphovascular invasion, all margins negative, and a single axillary sentinel node negative for metastasis. AJCC (eighth edition) pT1c pN0. Interval History: She presents here today accompanied by her to review the OncoType Dx score results. The score was 28. Her 9-year recurrence on tamoxifen alone is estimated at 17%. Group average absolute chemotherapy benefit for recurrence score between 26-100 was more than 15%. Clinically patient does not new events except the left breast swelling and tender with mild erythema. She denies any fever or chills. She does not have any shortness of breath or chest pain. No abdominal pain no diarrhea and no constipation. - Patient Self-Reported Symptoms SR Constitution: Night Sweats SR ears, nose, mouth, throat issues: Cough SR respiratory issues: Cough SR Cardiovascular issues: Dizzy/lightheaded SR Genitourinary issues: Frequent urination, Discharge SR Musculoskeletal issues: Joint pain or swelling SR Neuro issues: Headache, Lightheaded/dizzy SR Hematologic issues: Swollen lymph nodes - Additional ROS All systems PM: reviewed and no additional remarkable complaints except as stated Home Medications and Allergies Home Medications Medication Instructions Recorded Confirmed Type ibuprofen 400 mg PO Q6H 06/03/19 06/27/19 History acetaminophen [Tylenol] 325 mg PRN 06/27/19 History tamoxifen 20 mg PO DAILY #90 tab 06/27/19 Rx tamoxifen 20 mg PO DAILY #90 tab 06/27/19 Rx aspirin DAILY 08/20/19 History Allergies Allergy/AdvReac Type Severity Reaction Status Date / Time No Known Drug Allergies Allergy Unverified 03/19/20 09:37 Exam Vital signs: 10/07/19 13:55 Last Vital Signs Temp 99.1 F 09/19/19 16:17 Pulse 87 10/07/19 13:16 Resp 18 10/07/19 13:16 BP 121/79 10/07/19 13:16 Pulse Ox 100 10/07/19 13:16 - Constitutional positive no acute distress, positive obese, positive cooperative - Routine HEENT Exam Head: Present: normocephalic, atraumatic Eye: Present: EOMI, PERRL, normal accommodation. Absent: conjunctival icterus - Routine Neck Exam Present: supple. Absent: lymphadenopathy, thyromegaly - Detailed Breast Exam left Inspection: Present: erythema (mild), swelling, peau d'orange Palpation: Present: tenderness (mild). Absent: mass Comments: Left breast is tight and rubbery. right Inspection: Absent: erythema, swelling, peau d'orange, area of retraction Palpation: Absent: mass, tenderness - Routine Respiratory Exam Present: Clear to auscultation bilaterally. Absent: accessory muscle use, rales, wheezes - Routine Cardiovascular Exam Present: RRR, S1, S2. Absent: murmur, gallop, rubs - Routine Abdominal Exam Present: soft. Absent: tenderness, distended, organomegaly - Routine Extremities Exam Absent: edema - Routine Neurological Exam Present: alert, oriented X3, CN II-XII intact. Absent: sensory deficit, motor deficit - Routine Psychiatric Exam Present: normal affect Results - Labs Pending Assessment and Plan (1) Primary cancer of upper outer quadrant of left breast Overview: Humera is a 49-year-old female with self palpated breast upper outer quadrant tender mass, and was found out to have ER positive, NE positive, HER2 negative, clinically node negative invasive ductal carcinoma intermediate grade after ultrasound-guided biopsy on 05/23/2019. Due to COVID-19 crisis, her surgery was deferred. From 06/27/2019 to 08/20/2019, she received a brief course of neoadjuvant endocrine therapy with tamoxifen. On 08/26/2019, she underwent left breast lumpectomy with sentinel node biopsy after needle localization mapping by Dr. Starr. The surgical pathology infiltrating ductal carcinoma, low-grade, low mitotic rate, unifocal, 15 x 13 x 12 mm in size, without DCIS, without LVI, with all margins negative, and one negative axillary sentinel node (0/1). AJCC (eighth edition) pT1c pN0. Assessment: First I reviewed the Oncotype DX score with the patient. Patient has a recurrence score of 28. Patient has a distant recurrence risk of 17% if the patient was treated only on tamoxifen. Chemotherapy can have an absolute benefit of about 6-8%, i.e. her recurrence will be reduced to about 10%. Further adjuvant radiation therapy can further reduce both local and distant recurrence. Based on NCCN guideline, I would highly recommend chemotherapy. Patient voiced understanding. I explained to the patient that chemotherapy usually needs to administered via a port. I will refer the patient back to Dr. Starr for port placement. As far as the chemotherapy is concerned, I explained to the patient that there are generally 2 regimens which are commonly used. The first one is Adriamycin Cytoxan with weekly paclitaxel. The second regimen is docetaxel and Cytoxan. Patient reported that during last year, patient has had multiple episodes of rapid heartbeat. Patient underwent Holter monitoring as well as echocardiogram without any definitive diagnosis. Given these questionable heart problems, I would favor the regimen with docetaxel and Cytoxan because the Adriamycin has significant cardiac toxicity. Patient voiced understanding. I talked with the patient that the chemotherapy can cause side effects including but not limited to hair loss, nausea, vomiting, bone marrow suppression, infection risk, the need for antibiotics and blood transfusion. Patient voiced understanding and agreement to move forward. As far as the swelling and tenderness of the left breast is concerned, it is most likely lymphedema. I encouraged the patient to talk with Dr. Starr about any other options. I talked with her that sometimes breast massage can be of benefit. Patient voiced understanding. Plan: 1. Refer back to Dr. Starr for port placement 2. Chemotherapy teaching with the nurses 3. RTC in 2 weeks for C1# TC
[2019-10-07 13:16] VITALS: BP 121/79; PULSE 87; RESP 18; O2SAT 100
--- NOTE | 2019-10-08 13:30 | ONC.SCHED ---
Cyclophosphamide J9070 and Docetaxel J9171 no PA required per [employer] Authorization tool [facility].
--- NOTE | 2019-10-08 13:37 | ONC.SCHED ---
Submitted PA for Pegfilgrastim using [facility] Port PA tool for [employer].
--- NOTE | 2019-10-08 13:57 | ONC.SCHED ---
Per Sanjuanita at [facility], patient is scheduled for port placement on 10/14/[address] Starr.
--- NOTE | 2019-10-09 16:03 | PC.NURSE ---
CHEMO TEACHING: Chemotherapy Education: Pt provided written information on all topics discussed. Written materials printed from www.[facility].com for patient's ordered treatment plan. Pt was given an overview of cancer and mechanism of action of cancer cells, that cancer is caused by cells that are dividing rapidly, and out of control. Traditional chemotherapy works by targeting the fast dividing cells and killing them. Chemotherapy affecting healthy cells dividing quickly causes many of the side effects (hair follicles, bone marrow, mucus membranes). Overview of blood cell functions of white cells to fight infection, red cells to carry oxygen, and platelets to stop bleeding was discussed, and that when bone marrow is affected by chemo, there is a decrease in production of these cells. Home care of the patient following chemotherapy was discussed. Body fluids will be contaminated for 48 hours following treatment, and any body fluids handled by caregivers should be handled wearing gloves, surfaces need to be cleaned with soap and water, any soiled linens or clothing need to be washed separately in hot water, toilet lid should be closed when flushing, person cleaning the toilet should wear gloves. How chemotherapy is administered by the RN?s in the clinic, that orders are double checked by pharmacy and checked again by two RN?s prior to administration. Nurses wear protective gear to prevent exposure to them of the chemotherapy agents which can also cause cancer. Cancer center information discussed and written hand out provided listing on-call oncologist available weekends and after hours triage R.N. hours and infusion room guide. New patient folder given to pt, which includes clinic names, phone numbers, clinic information, calendar, cancer glossary, and list of resources. Handout on advanced directives Common side effects of chemotherapy were discussed with self care tips for prevention of complications. Information also provided in writing. These included: Low blood counts (anemia, thrombocytopenia, neutropenia) Hair loss (alopecia) Nausea and vomiting Decreased appetite Loss of fertility Diarrhea Mouth sores Constipation Peripheral neuropathy Chemo brain/cognitive changes Fatigue Instructions on when to call your healthcare team or on-call physician immediately: Fever of 100.4 or higher, chills, any signs of infection Shortness of breath, wheezing, difficulty breathing, closing of throat, swelling of face, hives (signs of possible allergic reaction) Chest pain, fast heart beat or feelings of a different heart rhythm Swelling of an extremity with or without pain signs of stroke Instructions on when to call your healthcare team within the next 24 hours Nausea that interferes with ability to eat and unrelieved with prescribed medication Diarrhea (4-6 episodes in 24 hour period). Unusual bleeding or bruising Black or tarry stools, or blood in your stools Blood in the urine pain or burning with urination Extreme fatigue (unable to perform self-care activities) Mouth sores or sore areas in your mouth Bad headache Dizziness or lightheadedness Large weight gain over a short period of time General self-care tips while undergoing treatment discussed were as follows. Written materials were provided covering in detail and additional self care tips. Drink at least 2-3 quarts (8-10 glasses) of no-caffeinated beverages daily unless you are instructed otherwise and empty your bladder frequently Report any concerning symptoms to your healthcare team Avoid crowds and sick people, wash your hands frequently Use a soft bristled toothbrush, rinse three times a day with 1 tsp baking soda or 1 tsp salt mixed with warm water Avoid any mouthwashes or oral and skin products containing alcohol or fragrances Use electric razors to avoid cutting yourself Avoid contact sports or activities that could cause head injury or bleeding Avoid sun exposure, wear SPF 15 or higher, wear protective clothing Get plenty of rest, meter your activities Maintain good nutrition Avoid alcoholic beverages Attend your scheduled appointments and lab draws Treatment regimen reviewed and medications were discussed with attention to specific side effects and self care for the pt?s treatment regimen. Pt encouraged to keep a list of questions that may arise after this teaching session and bring back to next clinic visit to address. All pt's questions answered at this time. Pt verbalizes understanding of treatment plan. Patient wishes to sign consent form with Dr. Woo as she would like to speak over the information with her and verify some information she heard of about the possibility of permanent hair loss with docetaxel. 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
--- NOTE | 2019-10-09 16:08 | PC.NURSE ---
PATIENT WOULD LIKE TO KNOW IF SHE NEEDS DEXAMETHASONE PO FOR POSSIBLE FLUID RETENTION WITH DOCETAXEL AND WOULD LIKE A PRESCRIPTION OF ONDANSETRON ODT FOR POSSIBLE NAUSEAU POST CHEMO. PRESCRIPTIONS CAN BE ESCRIBED TO [facility]. TRIAGE TO INFORM PATIENT TO BEATER LEAD PRESCRIPTIONS.
--- NOTE | 2019-10-10 16:36 | PC.NURSE ---
Addendum entered by Lenard Zuluaga R.N. 10/17/19 09:04: SEDRICK Beckford talked with the patient about alternate therapies: Methotrexate and fluorouracil, pt is comfortable with both of these medications in place of the taxotere. 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 Making provider aware with this note. Please advise. Original Note: Pt does not want to take Taxotere, related to potential permanent hair loss. She would like to know what her other options are. Making provider aware with this note.
--- NOTE | 2019-10-15 11:35 | ONC.SCHED ---
Received denial of coverage for pegfilgrastim. Put in Mattie's box.
[2019-10-21 09:25] VITALS: BP 141/86; PULSE 93; RESP 20; TEMP 36.8; O2SAT 96
--- NOTE | 2019-10-21 10:07 | P.PNONC_ITS ---
PN -Subjective Interval history: ID/CC: 49 year old female with left breast ER positive, WY positive, HER2 negative cancer HPI: Humera Barr is a 49 year old female. I first saw the patient on 06/27/2019. Probably around in 03/2019, patient noticed left breast tenderness especially over the upper outer quadrant. Patient said that she actually palpated a lump at that time and the lump was tender. In addition she noticed a little swelling at the tail of the left breast. On 05/03/2019, patient underwent bilateral digital diagnostic mammogram. The mammogram showed new 1.1 cm x 1.3 cm irregular equal density focal asymmetry in the left breast at 0100 posterior depth as well as a 1 cm x 1.1 cm irregular equal density focal asymmetry in the left breast at 0100 anterior depth. Same day ultrasound confirmed the 1 x 1.1 x 1.3 cm irregular mass in the left breast at 0100 posterior depth highly suspicious for malignancy and a 1.8 x 1.6 x 1 cm wider than tall oval simple cyst in the left breast at 0100 anterior depth which presumed to be benign. No significant abnormalities were seen sonographically in the left axilla. On 05/23/2019, patient underwent ultrasound-guided biopsy successfully. The biopsy showed invasive ductal carcinoma, grade 2/3, without DCIS, with calcifications, without lymphovascular invasion, and was ER positive (85%, weak to moderate), WY positive (90% tumor cells, moderate to strong signal), HER2 negative by IHC (0 to 1+). On 06/05/2019, patient underwent MR breast. It showed the biopsy-proven left br east carcinoma in the 0100 position measuring 1.7 cm in greatest diameter, a 6 mm lesion in the left breast middle depth 0400 position, small left axillary lymph nodes somewhat equivocal, indeterminate single prominent right axillary lymph node. On 06/10/2019 patient underwent ultrasound. The left breast 0400 middle depth lesion on MRI showed no abnormality sonographically. It showed the biopsy-proven invasive ductal carcinoma in the left breast 0100 hours 7-8 cm from the nipple. Right axillary enlarged lymph node showed fatty hilum and no cortical thickening probably benign. Patient was referred to our clinic and I saw the patient on 06/27/2019. Because of COVID-19 pandemic, the planned surgery was deferred. Therefore we started the patient on pre operative endocrine therapy with tamoxifen 20 mg once a day. She has tolerated well except mild hot flashes. In late , Humera was evaluated by her primary care provider MELANY Church at [facility], who contacted Dr. Starr whom patient was initially referred to but was not able to schedule the visit. Humera then talked with Dr. Starr and decided to proceed with surgery. Therefore, on 08/20/2019, she stopped the neoadjuvant tamoxifen. On 08/26/2019 patient left breast lumpectomy and sentinel node biopsy after needle localization mapping by Dr. Starr. The surgical pathology showed invasive infiltrating ductal carcinoma, low-grade, low mitotic rate, measuring 15 x 13 x 12 mm in size, without DCIS, unifocal, no lymphovascular invasion, all margins negative, and a single axillary sentinel node negative for metastasis. AJCC (eighth edition) pT1c pN0. OncoType Dx score was 28. Her 9-year recurrence on tamoxifen alone is estimated at 17%. Group average absolute chemotherapy benefit for recurrence score between 26-100 was more than 15%. Interval History: During her previous visit, we discussed in details about the need for adjuvant chemotherapy given the high Oncotype DX score. Patient voiced understanding. Also because of her uncertain history of cardiac issues, I talked with her that I am going to avoid the use of Adriamycin. We eventually decided to proceed with chemotherapy including docetaxel and Cytoxan every 3 weeks for 4 cycles. However patient has been very uncomfortable with the use of the docetaxel. She has been looking up online and has noticed ?thousands of lawsuits against the docetaxel for permanent hair loss.? She is very much afraid of the prominent hair loss. Otherwise clinically she has been doing well without any new signs or symptoms. She is scheduled for initiation of first cycle of adjuvant chemotherapy with docetaxel and Cytoxan today. Patient has already had port placement to the right upper chest. - Patient Self-Reported Symptoms SR Constitution: Fatigue/Malaise SR ears, nose, mouth, throat issues: Cough, Swollen glands SR respiratory issues: Cough SR Cardiovascular issues: Dizzy/lightheaded SR Genitourinary issues: Frequent urination, Discharge SR Musculoskeletal issues: Joint pain or swelling SR Neuro issues: Headache SR Hematologic issues: Swollen lymph nodes - Additional ROS All systems PM: reviewed and no additional remarkable complaints except as stated Home Medications and Allergies Home Medications Medication Instructions Recorded Confirmed Type ibuprofen 400 mg PO Q6H 06/03/19 10/21/19 History acetaminophen [Tylenol] 325 mg PRN PRN 06/27/19 10/21/19 History tamoxifen 20 mg PO DAILY #90 tab 06/27/19 10/21/19 Rx tamoxifen 20 mg PO DAILY #90 tab 06/27/19 10/21/19 Rx aspirin 1 tab DAILY 08/20/19 10/21/19 History Allergies Allergy/AdvReac Type Severity Reaction Status Date / Time No Known Drug Allergies Allergy Unverified 06/06/19 09:37 Exam Vital signs: Vital Signs Temp Pulse Resp BP Pulse Ox 10/21/19 09:25 98.2 F 93 H 20 141/86 H 96 Intake and Output 10/20/19 10/21/19 10/21/19 23:59 07:59 15:59 Other: Weight 84 kg Patient Weight 10/21/19 23:59 Weight 84 kg Narrative: ECOG 1 Gen: WDWN, NAD, pleasant and cooperative. Accompanied by her HEENT: NCAT, EOMI, PERRLA, anicteric sclera. Respiratory: No use of accessory respiratory muscle Neurological: AOx3, CN II-XII grossly intact. No focal motor or sensory deficit. Psychiatric: Normal affect, appropriate mood, no depression, no anxiety. Breast exams: deferred. Results - Labs Pending Assessment and Plan (1) Primary cancer of upper outer quadrant of left breast Overview: Humera is a 49-year-old female with self palpated breast upper outer quadrant tender mass, and was found out to have ER positive, WY positive, HER2 negative, clinically node negative invasive ductal carcinoma intermediate grade after ultrasound-guided biopsy on 05/23/2019. Due to COVID-19 crisis, her surgery was deferred. From 06/27/2019 to 08/20/2019, she received a brief course of neoadjuvant endocrine therapy with tamoxifen. On 08/26/2019, she underwent left breast lumpectomy with sentinel node biopsy after needle localization mapping by Dr. Starr. The surgical pathology infiltrating ductal carcinoma, low-grade, low mitotic rate, unifocal, 15 x 13 x 12 mm in size, without DCIS, without LVI, with all margins negative, and one negative axillary sentinel node (0/1). AJCC (eighth edition) pT1c pN0. OncoType Dx score was 28. Her 9-year recurrence on tamoxifen alone is estimated at 17%. Group average absolute chemotherapy benefit for recurrence score between 26-100 was more than 15%. Assessment: Humera has enormous anxiety regarding possibility of permanent hair loss associated with the use of docetaxel. She has looked up online and has noticed thousands of law suits about the permanent hair loss with Taxotere. I talked with her that from personal experience, I have not encountered a single case of permanent hair loss after the chemotherapy with docetaxel and Cytoxan. In addition, other regimens for example, AC/D (Adriamycin Cytoxan followed by paclitaxel) or CMV (Cytoxan Methotrexate and 5 FU), in my opinion is not less likely to cause permanent hair loss. I think all the chemotherapy regimens probably carries a very small risk of permanent hair loss. However I think the risk of recurrence of her breast cancer far outweighs the tiny risk of permanent hair loss. I would highly recommend that the patient consider proceeding with adjuvant chemotherapy. Patient is undecided. I talked with her that it would be probably helpful if she can get a second opinion from high-volume center regarding the different chemotherapy regimens and recommendations. She voiced agreement and would like to get a opinion at [facility]. It can be either a telephone or a video visit, not necessarily in-person visit. Plan: 1. Hold TC (Taxotere/Cytoxan) chemotherapy for now 2. Second opinion from [facility] (could be telemedicine) 3. RTC after /[facility] consult (2) Port-A-Cath in place Flush every 4-6 weeks
--- NOTE | 2019-11-06 13:32 | PC.NURSE ---
TAXOTERE: PATIENT STILL DOES NOT WANT TO DO CHEMO WITH TAXOTERE DUE TO HAIR LOSS ISSUE. SHE SPOKE WITH A DR AT [facility] REPORTING THAT HE RECOMMENDED THE TWO POSSIBILITIES OF A/C AND PACLITAXEL OR CYTOXAN/TAXOTERE. SHE WOULD LIKE TO KNOW IF JUST CTOXAN AND PACLITAXEL IS AN OPTION SHE FEELS OK ABOUT DOING THIS AND KNOWS DR FRANCO DOES NOT WANT HER TO DO ADRIAMYCIN DUE TO HER HISTORY OF ISSUES WITH THE HEART. DR FRANCO INFORMED PER THIS NOTE AND OF PATIENT'S WISH FOR A CALL BACK FROM HIM IF POSSIBLE AT [phone] SO THAT A DECISION CAN BE MADE BEFORE HER SCHEDULED START OF 11/10.
[2019-11-14 08:25] VITALS: BP 143/77; PULSE 92; RESP 18; TEMP 36.7; O2SAT 100
--- NOTE | 2019-11-14 08:27 | ONC.PN ---
PN -Subjective Interval history: ID/CC: 49 year old female with left breast ER positive, NV positive, HER2 negative cancer HPI: Humera Barr is a 49 year old female. I first saw the patient on 06/27/2019. Probably around in 03/2019, patient noticed left breast tenderness especially over the upper outer quadrant. Patient said that she actually palpated a lump at that time and the lump was tender. In addition she noticed a little swelling at the tail of the left breast. On 05/03/2019, patient underwent bilateral digital diagnostic mammogram. The mammogram showed new 1.1 cm x 1.3 cm irregular equal density focal asymmetry in the left breast at 0100 posterior depth as well as a 1 cm x 1.1 cm irregular equal density focal asymmetry in the left breast at 0100 anterior depth. Same day ultrasound confirmed the 1 x 1.1 x 1.3 cm irregular mass in the left breast at 0100 posterior depth highly suspicious for malignancy and a 1.8 x 1.6 x 1 cm wider than tall oval simple cyst in the left breast at 0100 anterior depth which presumed to be benign. No significant abnormalities were seen sonographically in the left axilla. On 05/23/2019, patient underwent ultrasound-guided biopsy successfully. The biopsy showed invasive ductal carcinoma, grade 2/3, without DCIS, with calcifications, without lymphovascular invasion, and was ER positive (85%, weak to moderate), NV positive (90% tumor cells, moderate to strong signal), HER2 negative by IHC (0 to 1+). On 06/05/2019, patient underwent MR breast. It showed the biopsy-proven left breast carcinoma in the 0100 position measuring 1.7 cm in greatest diameter, a 6 mm lesion in the left breast middle depth 0400 position, small left axillary lymph nodes somewhat equivocal, indeterminate single prominent right axillary lymph node. On 06/10/2019 patient underwent ultrasound. The left breast 0400 middle depth lesion on MRI showed no abnormality sonographically. It showed the biopsy-proven invasive ductal carcinoma in the left breast 0100 hours 7-8 cm from the nipple. Right axillary enlarged lymph node showed fatty hilum and no cortical thickening probably benign. Patient was referred to our clinic and I saw the patient on 06/27/2019. Because of COVID-19 pandemic, the planned surgery was deferred. Therefore we started the patient on pre operative endocrine therapy with tamoxifen 20 mg once a day. She has tolerated well except mild hot flashes. In late , Humera was evaluated by her primary care provider MELANY Church at [facility], who contacted Dr. Starr whom patient was initially referred to but was not able to schedule the visit. Humera then talked with Dr. Starr and decided to proceed with surgery. Therefore, on 08/20/2019, she stopped the neoadjuvant tamoxifen. On 08/26/2019 patient left breast lumpectomy and sentinel node biopsy after needle localization mapping by Dr. Starr. The surgical pathology showed invasive infiltrating ductal carcinoma, low-grade, low mitotic rate, measuring 15 x 13 x 12 mm in size, without DCIS, unifocal, no lymphovascular invasion, all margins negative, and a single axillary sentinel node negative for metastasis. AJCC (eighth edition) pT1c pN0. OncoType Dx score was 28. Her 9-year recurrence on tamoxifen alone is estimated at 17%. Group average absolute chemotherapy benefit for recurrence score between 26-100 was more than 15%. Interval History: During her previous visit, we had a long discussion regarding the chemotherapy with docetaxel and Cytoxan. We mainly focused on the possible prominent hair loss. I talked with her that I have not seen a single case of permanent hair loss myself. However patient is very anxious. Therefore we set up a second opinion at [facility]. Dr. Quentin Moss of [facility] had virtual video conference with the patient on 10/31/2019. Dr. cervantes agree with adjuvant docetaxel/Cytoxan. Dr. Moss also recommended ovarian suppression and aromatase inhibitor for endocrine therapy. Patient presents here today for discussion about initiation of chemotherapy. - Patient Self-Reported Symptoms SR Constitution: Fatigue/Malaise SR ears, nose, mouth, throat issues: Cough, Swollen glands SR respiratory issues: Cough SR Cardiovascular issues: Dizzy/lightheaded SR Genitourinary issues: Frequent urination, Discharge SR Musculoskeletal issues: Joint pain or swelling SR Neuro issues: Headache SR Hematologic issues: Swollen lymph nodes - Additional ROS All systems PM: reviewed and no additional remarkable complaints except as stated Home Medications and Allergies Home Medications Medication Instructions Recorded Confirmed Type ibuprofen 400 mg PO Q6H 06/03/19 10/21/19 History acetaminophen [Tylenol] 325 mg PRN PRN 06/27/19 10/21/19 History tamoxifen 20 mg PO DAILY #90 tab 06/27/19 10/21/19 Rx tamoxifen 20 mg PO DAILY #90 tab 06/27/19 10/21/19 Rx aspirin 1 tab DAILY 08/20/19 10/21/19 History Allergies Allergy/AdvReac Type Severity Reaction Status Date / Time No Known Drug Allergies Allergy Unverified 06/06/19 09:37 Exam Vital signs: Vital Signs Temp Pulse Resp BP Pulse Ox 11/14/19 08:25 98.1 F 92 H 18 143/77 H 100 Intake and Output 11/13/19 11/14/19 11/14/19 23:59 07:59 15:59 Other: Weight 83 kg Patient Weight 11/14/19 23:59 Weight 83 kg Narrative: ECOG 1 Gen: WDWN, NAD, pleasant and cooperative. Accompanied by her HEENT: NCAT, EOMI, PERRLA, anicteric sclera. Respiratory: No use of accessory respiratory muscle Neurological: AOx3, CN II-XII grossly intact. No focal motor or sensory deficit. Psychiatric: Normal affect, appropriate mood, no depression, no anxiety. Breast exams: deferred. Assessment and Plan (1) Primary cancer of upper outer quadrant of left breast Overview: Humera is a 49-year-old female with self palpated breast upper outer quadrant tender mass, and was found out to have ER positive, NV positive, HER2 negative, clinically node negative invasive ductal carcinoma intermediate grade after ultrasound-guided biopsy on 05/23/2019. Due to COVID-19 crisis, her surgery was deferred. From 06/27/2019 to 08/20/2019, she received a brief course of neoadjuvant endocrine therapy with tamoxifen. On 08/26/2019, she underwent left breast lumpectomy with sentinel node biopsy after needle localization mapping by Dr. Starr. The surgical pathology infiltrating ductal carcinoma, low-grade, low mitotic rate, unifocal, 15 x 13 x 12 mm in size, without DCIS, without LVI, with all margins negative, and one negative axillary sentinel node (0/1). AJCC (eighth edition) pT1c pN0. OncoType Dx score was 28. Her 9-year recurrence on tamoxifen alone is estimated at 17%. Group average absolute chemotherapy benefit for recurrence score between 26-100 was more than 15%. Assessment: I explained to the patient that Dr. Moss agrees with the same chemotherapy, i.e. docetaxel and Cytoxan. However patient apparently has not made up her mind yet. She is still very much concerned about the permanent hair loss. I once again talked with her that I have not seen at single case of permanent hair loss. As a matter fact, I have more concerns about neuropathy than hair loss. Patient signed the informed consent today, but she would like to wait until Monday to start the chemotherapy. I talked with her that signed informed consent does not mean she can not change her mind. Plan: TC (Taxotere/Cytoxan) chemotherapy on Monday (2) Port-A-Cath in place Flush every 4-6 weeks
--- NOTE | 2019-11-14 15:09 | ONC.SCHED ---
Spoke with [employer] just now and they said if I resubmit the auth for [id number] online it will take 5 business days. The rep said the quickest route would be to have Dr. Woo do a peer to peer review on Monday. I tried calling the peer to peer phone number today but they said their providers to call back were full. I let Mattie Marcelino know. I will let give the peer to peer info to Dr. Woo to have him do it first thing Monday as Urgent. Patient will need this injection 11/27/19 per order panel as part of her chemo. All other chemo meds have been approved for her to start that Monday.
--- NOTE | 2019-11-14 15:35 | ONC.MSW ---
Description: Counseling for coping, emotional support, and coping with hair loss. Activity: Met with pt after her provider visit, she has been struggling with fears of losing her hair and not having it grow back, if she chose to move forward with the Taxol chemotherapy. Met with her and her privately. Pt presented as very anxious and tearful, feeling overwhelmed that the chemo is still being recommended through her second opinion at [facility]. Discussed and normalized the emotional distress of potential hair loss, provided education re: what to expect with hair loss, when it will begin to grow back, cold cap therapies, and the availability of the [facility] [employer] to help with any or all of these types of costs up to $800. Processed her feelings of her entire cancer experience thus far, and offered encouragement for how far she has already come. She expressed feeling much relieved, expressing that she now feels ready to move forward with the chemo. Assisted her in going to scheduling and getting a time set for this coming Monday. [employer] will plan to meet with her while she is infusion when she returns.
--- NOTE | 2019-11-18 08:56 | PC.NURSE ---
Dr. Ajay Valverde's nurse from [facility] called to discuss care of Humera Barr and current recommendations for chemotherapy. 's pager number is: [phone] Woo would like to discuss further with Dr. Moss. 1st recommendation: is TC and next recommendation is CMF: but this regimen was not discussed with the patient, Dr. Moss is unable to get patient in for an appointment in a timely manner to discuss this treatment option.
--- NOTE | 2019-11-18 10:24 | ONC.MSW ---
Description: T/C re: treatment decision-making Activity: Called pt to check-in after hearing that she had decided not to move forward with her chemotherapy today. She has been talking to her surgeon, Dr. Starr, about other options than Taxotere. LOZENGE MAKER HELPER told pt that Dr. Woo has a call into [facility], and that they will also be discussing her concerns. She's asking about Paclitaxol as another option, not knowing that it also causes hair loss, which is her main concern. LOZENGE MAKER HELPER reassured her that we support whatever decisions she makes for herself and her family, and also provided the information for [facility] Cold Caps, should she want to explore this option. Will continue to monitor for next steps.
--- NOTE | 2019-11-20 13:40 | PC.NURSE ---
Spoke with pt today regarding [facility]'s, DR. Moss's recommendations for treatment. Explained 1st recommendation: is TC (pt has declined this option) and next recommendation is CMF. Briefly discussed CMF and explained that Dr. Woo would like to see the pt as soon as possible to fully discuss treatment regimen. Pt let this filing writer know she spoke with Dr. Starr, from [place], about possible treatment options, and would prefer to f/u with her again and then let us know. Pt further explains that she may decide to transfer care to [place] and receive treatment there, it's closer to us and might just be easier. Let pt know we are here to support her in whatever decision she makes and to just call us and let us know. Pt agreeable and states Okay, I'll talk to my and call you back.
--- NOTE | 2019-11-26 16:06 | ONC.SCHED ---
Pt. called to cancel all future appts at this time. Doing tx in [facility].
== END ==
PROVIDERS: PCP Physician Assistant Medical; Referring Provider Physician Assistant Medical; Visit Provider Internal Medicine Hematology & Oncology
DX: C50.412 Malignant neoplasm of upper-outer quadrant of left female breast (principal); Z17.0 Estrogen receptor positive status [ER+]; Z95.828 Presence of other vascular implants and grafts
CPT/HCPCS: 99204; 99214; 99215

== ENCOUNTER → 2021-03-18 11:38 | Outpatient (CLI) | payer OTHER, SELFPAY ==
--- NOTE | 2021-03-18 11:42 | DI.MRI.S_ITS ---
BREAST MRI OF BOTH BREASTS: 03/18/2021 CLINICAL: Malignant neoplasm of left breast. Comparison is made to exams dated: 08/24/2020 ultrasound, 12/11/2019 ultrasound - [facility], 06/05/2019 breast MRI - [facility], and 08/26/2019 localization - [facility]. Interpretation of this MRI was correlated with available mammograms, ultrasounds, and previous MRI scans. Informed consent was obtained from the patient. 10 cc of ProHance (Gadoteridol) nonionic contrast was injected. Axial T1, T2, sagittal T1, and pre and post contrast T1 images were obtained with a dedicated breast coil. There is mild background parenchymal enhancement. Right breast: No discrete mass or suspicious enhancement identified in the right breast to suggest malignancy. Left breast: There are postsurgical changes status post partial mastectomy in the upper outer quadrant. At the 3 to 4 o'clock position of the lateral left breast middle 3rd in depth, there is a small oval lobulated T2 hyperintense enhancing mass redemonstrated. This measures approximately 0.6 x 0.6 x 0.5 cm and appears stable compared to the prior MRI study. This appears to correspond by size, morphology, and location to a small intramammary lymph node seen at the 3:30 position on the ultrasound of 12/11/2019. There is diffuse edema within the left breast as well as asymmetric skin thickening. The findings may represent post radiation changes or lymphedema related to prior lymph node dissection. No new discrete mass or suspicious enhancement to suggest new recurrent disease. Miscellaneous: No axillary or internal mammary lymphadenopathy by size criteria. Mildly prominent right axillary lymph node appears stable in size compared to the prior MRI. IMPRESSION: BENIGN 1. Postsurgical changes status post partial mastectomy in the left breast without definite evidence of new recurrent or metastatic disease. 2. Stable small enhancing mass centered at the 3:30 position in the left breast. This likely corresponds to a small intramammary lymph node seen on the prior ultrasound of 12/11/2019. Findings are benign given stability of almost 2 years. 3. Asymmetric edema and skin thickening in the left breast may represent post radiation changes or lymphedema related to left axillary node dissection. Return to annual mammogram screening schedule is recommended. Future imaging is recommended as follows: 05/04/2021 screening mammogram. This exam was interpreted at Station ID: [id number]. Electronically Signed By: Eleuterio Salazar M.D. ddp/:03/18/2021 15:55:43 copy to: Al Samuel copy to: VAHID GUEVARA BI-RADS Category 2: Benign Finding(s) [id number]
== END ==
PROVIDERS: PCP Physician Assistant Medical; Referring Provider Surgery; Visit Provider Surgery
DX: C50.412 Malignant neoplasm of upper-outer quadrant of left female breast (principal); N63.23 Unspecified lump in the left breast, lower outer quadrant
CPT/HCPCS: 77049; A9579

== ENCOUNTER 2023-02-12 20:02 | Emergency (ER) | payer OTHER, SELFPAY ==
[2023-02-12] VITALS (8 sets, daily range): BP systolic 120–191; BP diastolic 63–91; PULSE 79–96; RESP 15–24; TEMP 36.6; O2SAT 96–99; BMI 30.9
[2023-02-12] MEDS: SODIUM CHLORIDE 0.9% 1,000 ML 1000 ML IV (20:56)
[2023-02-12 21:00] LABS: Add Manual Diff / Slide Review NO; Basophils Absolute Auto 0 /uL (0-100); Basophils Percent Auto 0.5 % (0-2); Eosinophils Absolute Auto 100 /uL (0-450); Eosinophils Percent Auto 2.1 % (2-4); Hematocrit 35.4 % (36-46); Hemoglobin 11.5 g/dL (12.0-16.0); Lymphocytes Absolute Auto 2200 /uL (1100-4500); Lymphocytes Percent Auto 30.8 % (25-40); Mean Corpuscular HGB Conc 32.4 % (30-36); Mean Corpuscular Hemoglobin 21.3 PG (26-34); Mean Corpuscular Volume 65.8 fL (80-100); Monocytes Absolute Auto 300 /uL (0-900); Monocytes Percent Auto 3.6 % (3-14); Neutrophils Absolute Auto 4600 /uL (1500-7000); Platelet Count 191 X10^3/uL (150-400); Red Blood Cell Count 5.38 X10^6/uL (4.0-5.2); Red Cell Distribution Width 15.2 % (11.6-14.8); White Blood Cell Count 7.2 X10^3/uL (4.5-11.0)
[2023-02-12 21:06] LABS: BUN Creatinine Ratio 21.4 (6-22); Blood Urea Nitrogen 15 mg/dL (7-17); Calcium 9.8 mg/dL (8.4-10.2); Carbon Dioxide 24 mmol/L (22-32); Chloride 102 mmol/L (98-107); Estimated Glomerular Filt Rate > 60 mL/min (>60); Glucose 118 mg/dL (70-100); HEMOLYSIS < 15 (0-50); Potassium 3.4 mmol/L (3.4-5.1); Sodium 138 mmol/L (137-145)
[2023-02-12 21:15] LABS: Hypochromasia 1+; Microcytosis 2+; Stomatocytes 2+
--- NOTE | 2023-02-12 21:35 | ED.GENADULT ---
HPI - General Adult General Chief complaint: Dizziness Stated complaint: Syncope Time Seen by Provider: 02/12/23 20:43 Source: patient and family Mode of arrival: Ambulatory History of Present Illness HPI narrative: Patient is a 53-year-old female. She states that she was bending over getting something out of the freezer and a refrigerator when she had an episode of becoming lightheaded. She did appear to lose consciousness. She did fall forward but did not injure herself. She reports some fogginess in her head. Prior to the event she stated that she did feel like her heart was beating fast. And other similar event happened here in triage although she did not appear to completely pass out. Again she felt like her heart was beating fast. She has had episodes of palpitations in the past. She feels like they have become more frequent recently. She did have a Holter monitor but that was several years ago. She was get somewhat lightheaded when the fast heart rate occurs. No numbness in her upper and lower extremities. Time of my evaluation she was not having palpitations or lightheadedness. Related Data Home Medications Medication Instructions Recorded Confirmed ibuprofen 200 mg tablet 400 mg PO Q6H 06/03/19 03/14/22 acetaminophen 325 mg tablet 325 mg PRN PRN Pain (Scale Score 06/27/19 03/14/22 (Tylenol) 4-6) aspirin 81 mg chewable tablet 1 tab DAILY 08/20/19 03/14/22 Previous Rx's Medication Instructions Recorded tamoxifen 10 mg tablet 20 mg (2 x 10 mg) PO DAILY #90 tabs 06/27/19 tamoxifen 10 mg tablet 20 mg (2 x 10 mg) PO DAILY #90 tabs 06/27/19 Allergies Allergy/AdvReac Type Severity Reaction Status Date / Time No Known Drug Allergies Allergy Unverified 03/14/22 14:56 Review of Systems Constitutional Constitutional: Reports system reviewed and no additional complaints, except as documented Cardiovascular Cardiovascular: Reports system reviewed and no additional complaints, except as documented Respiratory Respiratory: Reports system reviewed and no additional complaints, except as documented Integumentary/Breasts Skin/Breast: Reports system reviewed and no additional complaints, except as documented Neurologic Neurologic: Reports system reviewed and no additional complaints, except as documented Hematologic/Lymphatic On Anticoagulants: No Patient History Medical History Thalassemia, beta Surgical History (Updated 09/19/19 @ 17:53 by Mitch Woo MD) History of oophorectomy, unilateral Hx of hysterectomy Hx of appendectomy Family History Father Thalassemia, beta Brother Thalassemia, beta Social History marital status: household members: spouse Smoking Status: Never smoker alcohol intake: never substance use type: does not use Smoking Status: Never smoker alcohol intake frequency: holidays/special occasions only Substance Use Type: does not use Exam Initial Vital Signs Initial Vital Signs: Vital Signs Temperature 98 F 02/12/23 20:20 Pulse Rate 96 H 02/12/23 20:20 Respiratory Rate 20 02/12/23 20:20 Blood Pressure 191/91 H 02/12/23 20:20 Pulse Oximetry 98 02/12/23 20:20 Oxygen Delivery Method Room Air 02/12/23 20:20 HENMT Head: normal to inspection and normocephalic Resp Effort & Inspection: normal respiratory effort Cardio Rate: regular rate GI Inspection: non-distended Skin General: no rashes or lesions noted Neuro General: patient alert, patient awake, patient oriented x3 and moves all extremities Cognition: normal cognition Speech: speech normal Extrem General: normal to inspection Course Orders Ordered: ED Orders 02/12/23 20:44 EKG-12 Lead Stat 02/12/23 20:45 Basic Metabolic Panel Stat Complete Blood Count AUTO DIFF Stat Discontinued Medications Sodium Chloride (Normal Saline 0.9%) 1,000 mls @ 1,000 mls/hr IV BOLUS ONE Stop: 02/12/23 21:43 Last Infusion: 02/12/23 21:54 Dose: Infused Documented By: Admin: 02/12/23 20:56 Dose: 1,000 mls/hr Documented By: SB Vital Signs Vital signs: Vital Signs - 8 hr 02/12/23 20:20 02/12/23 20:36 02/12/23 20:37 Temperature 98 F Pulse Rate 96 H 93 H Respiratory Rate 20 Blood Pressure 191/91 H 162/84 H Pulse Oximetry 98 Oxygen Delivery Method Room Air 02/12/23 20:37 02/12/23 21:00 02/12/23 21:00 Temperature Pulse Rate 80 79 Respiratory Rate 16 18 Blood Pressure 150/75 H Pulse Oximetry 98 99 Oxygen Delivery Method 02/12/23 21:30 02/12/23 21:30 02/12/23 21:52 Temperature Pulse Rate 93 H Respiratory Rate Blood Pressure 167/82 H 158/81 H Pulse Oximetry 98 Oxygen Delivery Method 02/12/23 21:52 02/12/23 21:54 02/12/23 21:54 Temperature Pulse Rate 82 79 Respiratory Rate 22 24 Blood Pressure 132/63 Pulse Oximetry 99 98 Oxygen Delivery Method 02/12/23 22:00 02/12/23 22:00 Temperature Pulse Rate 79 Respiratory Rate 15 Blood Pressure 120/65 Pulse Oximetry 96 Oxygen Delivery Method Medical Decision Making Lab Data Lab results reviewed: Yes I reviewed the patient's lab results. 02/12/23 20:45 02/12/23 20:45 Labs: Lab Results 02/12/23 Range/Units 20:45 WBC 7.2 (4.5-11.0) X10^3/uL RBC 5.38 H (4.0-5.2) X10^6/uL Hgb 11.5 L (12.0-16.0) g/dL Hct 35.4 L (36-46) % MCV 65.8 L (80-100) fL MCH 21.3 L (26-34) PG MCHC 32.4 (30-36) % RDW 15.2 H (11.6-14.8) % Plt Count 191 (150-400) X10^3/uL Neut % (Auto) 63.0 (50-75) % Lymph % (Auto) 30.8 (25-40) % Frontier % (Auto) 3.6 (3-14) % Eos % (Auto) 2.1 (2-4) % Baso % (Auto) 0.5 (0-2) % Neut # (Auto) 4600 (1857-7025) /uL Lymph # (Auto) 2200 (5493-1340) /uL Frontier # (Auto) 300 (0-900) /uL Eos # (Auto) 100 (0-450) /uL Baso # (Auto) 0 (0-100) /uL RBC Morphology See below Hypochromasia 1+ H Microcytosis 2+ H Stomatocytes 2+ H Sodium 138 (137-145) mmol/L Potassium 3.4 (3.4-5.1) mmol/L Chloride 102 (98-107) mmol/L Carbon Dioxide 24 (22-32) mmol/L BUN 15 (7-17) mg/dL Creatinine 0.70 (0.52-1.04) mg/dL Estimated GFR > 60 (>60) mL/min BUN/Creatinine Ratio 21.4 (6-22) Glucose 118 H (70-100) mg/dL Calcium 9.8 (8.4-10.2) mg/dL Urine Dip Bedside Urine Glucose Negative Bedside Urine Bilirubin - Negative Bedside Urine Ketone - Negative Urine Specific [place] 1.02 Bedside Urine Occult Blood - Negative Bedside Urine pH 6 Bedside Urine Protein - Negative Bedside Urine Urobilinogen - Negative Bedside Urine Nitrite - Negative Bedside Urine Leukocytes - Negative Esterase Point of care testing: Urine Dip Bedside Urine Glucose Negative Bedside Urine Bilirubin - Negative Bedside Urine Ketone - Negative Urine Specific [place] 1.02 Bedside Urine Occult Blood - Negative Bedside Urine pH 6 Bedside Urine Protein - Negative Bedside Urine Urobilinogen - Negative Bedside Urine Nitrite - Negative Bedside Urine Leukocytes - Negative Esterase ECG Data Attestation: I personally reviewed and interpreted this ECG as follows: Interpretation: Sinus rhythm Ventricular rate 91 Normal axis Normal QRS Nonspecific ST T wave changes MDM Narrative Medical decision making narrative: I do question somewhat is whether not the patient could be having transient episodes of a arrhythmia as she does state that her episodes seem to be associated with a fast heart rate. She is in sinus rhythm here in the ER. We did discuss the limited ability to make a diagnosis unless she is being monitored when she has the symptoms. She admits that when she had the Holter monitor several years ago her symptoms were fairly irregular and she did not have any symptoms at the time. I do have low suspicion for CVA/TIA/seizure. Her electrolytes are unremarkable. Advised that she contact her primary doctor for follow-up to discuss a Holter monitor. She was given return precautions. She expressed understanding and agreement. Patient is low risk per the [place] syncope rule Discharge Plan Departure Patient Disposition: Home Clinical Impression: Syncope Instructions: Fainting Activity Restrictions/Additional Instructions: Recommend that you continue to take all of your medications as directed. Be sure that you were increasing your fluid intake. I recommend you contact your primary provider for follow-up and discuss the indications for a Holter monitor. Return to the emergency department for new or worsening symptoms. Prescriptions: No Action ibuprofen 200 mg Tablet 400 mg PO Q6H acetaminophen [Tylenol] 325 mg Tablet 325 mg PRN PRN (Reason: Pain (Scale Score 4-6)) tamoxifen 10 mg Tablet 20 mg PO DAILY Qty: 90 3RF tamoxifen 10 mg Tablet 20 mg PO DAILY Qty: 90 3RF aspirin 81 mg Tablet,Chewable 1 tab DAILY Referrals: Corrine Church PA-C [Primary Care Provider] - Stand Alone Forms: Patient Portal/API
== END 2023-02-12 22:17 | disposition home or self-care (01) ==
PROVIDERS: Emergency Provider Emergency Medicine; PCP Physician Assistant Medical
DX: R55 Syncope and collapse (principal); R94.31 Abnormal electrocardiogram [ECG] [EKG]
CPT/HCPCS: 36415; 80048; 81003; 85025; 93005; 96360; 99284